=== PATIENT | male | born 1955 | race Caucasian/White ===

== ENCOUNTER 2019-05-31 00:16 | Day surgery (SDC) | payer OTHER, SELFPAY ==
[2019-05-24 14:14] VITALS: BMI 32.8
[2019-05-31 07:09] VITALS: BP 154/91; PULSE 89; RESP 18; O2SAT 97; BMI 31.9
--- NOTE | 2019-05-31 07:24 | WPDANESEPPF ---
Anes - Initial Pre Proc Eval Procedure: Operation Date: 05/31/19 08:00 Proposed Procedures p Screening Colonoscopy - Bandar Aguero MD Date/Time: 05/31/19 07:24 Surgeon: Bandar Aguero MD Pre Op Diagnosis: Neoplasm Screening/ Fam Hx Colon Ca Patient Data Age: 63 Gender: M Height: 1.88 m Weight: 113 kg Last Vital Signs Pulse 89 05/31/19 07:09 Resp 18 05/31/19 07:09 BP 154/91 H 05/31/19 07:09 Pulse Ox 97 05/31/19 07:09 Allergies Allergy/AdvReac Type Severity Reaction Status Date / Time No Known Allergies Allergy Unknown Verified 05/31/19 06:55 Home Medications Medication Instructions Recorded Confirmed Type iqphkzawvjgk-ujw-zmdco acid-vit 1 tablet PO DAILY 01/29/19 05/31/19 History K-lycop 400 mcg-20 mcg-370 mcg tablet quinapril 20 1 tablet PO DAILY 01/29/19 05/31/19 History mg-hydrochlorothiazide 12.5 mg tablet duloxetine [Cymbalta] 60 mg PO BID 05/24/19 05/31/19 History meloxicam 15 mg PO EVERY OTHER DAY 05/24/19 05/31/19 History Patient hx anesthesia problems: none Family hx anesthesia problems: none PMFSH Past Medical History Medical History (Updated 05/30/19 @ 13:33 by Jean-Pierre Cardenas DO) Hypertension Osteoarthritis Surgical History Surgical History History of back surgery Social History Social History Smoking status: Never smoker Second hand tobacco smoke exposure: No Alcohol intake: never Gender identity (if verbalized by the patient): Male Anes - Eval Final PreProcedure Day of Procedure 05/31/19 07:24 Patient weight: obese Heart: regular rate and rhythm Lungs: clear to auscultation and normal air movement Airway: Mallampati scale class II Neurological: alert and oriented Last oral intake: >/= 8 hours ASA classification: III Emergent: no Anesthetic plan: proceed Anesthesia type and monitoring: general GIVS and standard monitoring Informed Consent: The patient's anesthetic plan and its attendant risks and benefits were discussed with the patient/family/POA. Questions were solicited and answers provided to the satisfaction of the patient/family/POA.
[2019-05-31] MEDS: LACTATED RINGERS 1,000 ML 150 ML IV CONT (07:30)
--- NOTE | 2019-05-31 07:32 | WPDGICN ---
Assessment and Plan Additional Plan This is a 63-year-old white male patient seen in evaluation at the request of Dr. Bhardwaj. Patient presents for screening colonoscopy. His current weight appetite bowel movements are normal. He denies abdominal pain. Bowel habits are regular. He denies any blood in his stools. Family history is significant his father had colon cancer. His brother may have had colon polyps. Current medications include Cymbalta, meloxicam, and vitamins, he also takes hydrochlorothiazide. No known medical allergies. Physical exam reveals patient to be alert. Vital signs stable. HEENT exam unremarkable. Lungs are clear to auscultation and percussion. Heart is without murmur or extra sounds. Abdominal exam bowel sounds are present soft nontender with no organomegaly. Digital external rectal exam normal. Impression 1. Family history of colon cancer in father. Plan is for screening colonoscopy now and at 5 year intervals in the future. GI Consult Note Consult date/time: 05/31/19 07:32 HPI: Ry Barbour is a 63 year old male [facility] Past Medical History Medical History (Updated 05/30/19 @ 13:33 by Jean-Pierre Cardenas DO) Hypertension Osteoarthritis Surgical History Surgical History History of back surgery Social History Social History Smoking status: Never smoker Second hand tobacco smoke exposure: No Alcohol intake: never Gender identity (if verbalized by the patient): Male Meds Home Medications and Allergies Home Medications Medication Instructions Recorded Confirmed Type rdhgbcwaqpnr-hdo-pjrct acid-vit 1 tablet PO DAILY 01/29/19 05/31/19 History K-lycop 400 mcg-20 mcg-370 mcg tablet quinapril 20 1 tablet PO DAILY 01/29/19 05/31/19 History mg-hydrochlorothiazide 12.5 mg tablet duloxetine [Cymbalta] 60 mg PO BID 05/24/19 05/31/19 History meloxicam 15 mg PO EVERY OTHER DAY 05/24/19 05/31/19 History Allergies Allergy/AdvReac Type Severity Reaction Status Date / Time No Known Allergies Allergy Unknown Verified 05/31/19 06:55 Vital Signs Vital Signs - 24 hr 05/31/19 07:09 Pulse Rate 89 Respiratory Rate 18 Blood Pressure 154/91 H Pulse Oximetry 97
[2019-05-31 08:29] VITALS: BP 146/91; PULSE 85; RESP 19; O2SAT 99
[2019-05-31 08:39] VITALS: BP 136/93; PULSE 80; RESP 21; O2SAT 99
[2019-05-31 08:49] VITALS: BP 145/95; PULSE 72; RESP 18; O2SAT 99
== END 2019-05-31 08:56 | disposition home or self-care (01) ==
PROVIDERS: PCP Family Medicine; Visit Provider Internal Medicine Gastroenterology
PROC: 0DJD8ZZ Inspection of Lower Intestinal Tract, Via Natural or Artificial Opening Endoscopic (ICD-10-PCS; CPT 45378; principal; 2019-05-31 08:00)
DX: Z12.11 Encounter for screening for malignant neoplasm of colon (principal); K57.30 Diverticulosis of large intestine without perforation or abscess without bleeding; K64.8 Other hemorrhoids; Z80.0 Family history of malignant neoplasm of digestive organs; I10 Essential (primary) hypertension; M19.90 Unspecified osteoarthritis, unspecified site; E66.9 Obesity, unspecified; Z68.32 Body mass index [BMI] 32.0-32.9, adult
CPT/HCPCS: 45378; J2704; J7120

== ENCOUNTER 2019-08-27 08:02 | Outpatient (CLI) | payer OTHER, SELFPAY ==
[2019-08-27 08:55] LABS: Alanine Aminotransferase 29 U/L (16-63); Albumin Level 3.6 g/dL (3.4-5.0); Alkaline Phosphatase 92 U/L (46-116); Anion Gap 11.1 mmol/L (7-16); Aspartate Amino Transferase 21 U/L (15-37); Bilirubin,Total 0.6 mg/dL (0.00-1.00); Blood Urea Nitrogen 19 mg/dL (7-18); Calcium 8.4 mg/dL (8.5-10.1); Carbon Dioxide 31 mmol/L (21-32); Chloride 104 mmol/L (98-108); Estimated Glomerular Filt Rate > 60; Glucose 96 mg/dL (70-99); Osmolality Calculated 296 mOsm/kg (285-295); Potassium 4.1 mmol/L (3.5-5.1); Sodium 142 mmol/L (136-145); Total Protein 6.7 g/dL (6.4-8.2)
[2019-08-27 09:10] LABS: CRP < 0.2 mg/dL (0.0-0.9)
[2019-08-27 09:13] LABS: Erythrocyte Sedimentation Rate 14 mm/hr (0-20)
== END 2019-08-27 08:03 | disposition home or self-care (01) ==
PROVIDERS: PCP Family Medicine; Visit Provider Internal Medicine
DX: M35.3 Polymyalgia rheumatica (principal); M19.90 Unspecified osteoarthritis, unspecified site
CPT/HCPCS: 36415; 80053; 85652; 86140

== ENCOUNTER 2020-04-04 08:52 | Outpatient (CLI) | payer OTHER, SELFPAY ==
[2020-04-04 09:50] LABS: Alanine Aminotransferase 26 U/L (16-63); Albumin Level 3.9 g/dL (3.4-5.0); Alkaline Phosphatase 86 U/L (46-116); Anion Gap 8 mmol/L (8-16); Aspartate Amino Transferase 12 U/L (15-37); Bilirubin,Total 0.8 mg/dL (0.00-1.00); Blood Urea Nitrogen 19 mg/dL (7-18); Calcium 8.7 mg/dL (8.5-10.1); Carbon Dioxide 29 mmol/L (21-32); Chloride 104 mmol/L (98-108); Estimated Glomerular Filt Rate > 60; Glucose 95 mg/dL (70-99); Osmolality Calculated 294 mOsm/kg (285-295); Potassium 4.3 mmol/L (3.5-5.1); Sodium 141 mmol/L (136-145); Total Protein 6.9 g/dL (6.4-8.2)
== END 2020-04-04 08:53 | disposition home or self-care (01) ==
LOC: CHSLAB 08:54
PROVIDERS: PCP Family Medicine; Visit Provider Internal Medicine
DX: M19.90 Unspecified osteoarthritis, unspecified site (principal)
CPT/HCPCS: 36415; 80053

== ENCOUNTER 2020-09-06 14:49 | Emergency (ER) | payer OTHER, SELFPAY ==
--- NOTE | ~2020-09-06 | CT_ITS ---
EXAMINATION: CT abdomen pelvis wo con DATE: 09/06/2020 15:46 INDICATION: Hematuria and dysuria presenting with bladder pressure and burning sensation. TECHNIQUE: Computed tomography (CT) of the abdomen and pelvis was performed without intravenous contr ast. Automated exposure control and iterative reconstruction technique were employed. The dose-length product was 1286.97 mGy-cm. COMPARISON: None FINDINGS: Lung bases are clear. Heart size is normal. No pericardial or pleural effusion. Liver, gallbladder, s pleen, pancreas and bilateral adrenal glands are normal. 1.7 cm cyst at the interpolar region of the right kidney. Indeterminate 2.2 cm intermediate attenuation exophytic lesion at the interpolar region of the left kidney. 2 mm stone in the distal right ureter approximately 1.5 cm from the ureterovesic ular junction with mild right hydroureteronephrosis. No other urolithiasis. There are a few small par apelvic cysts in the left kidney with no left-sided hydronephrosis. There is moderate colonic diverti culosis with a sigmoid predominance. There is no adjacent inflammatory change to suggest diverticuli tis. Small bowel and appendix are normal. Small fat-containing umbilical hernia. Bladder is normal. P rostatomegaly. Small bilateral fat-containing inguinal hernias. No free intraperitoneal gas or fluid. No pathologically enlarged abdominal or pelvic lymphadenopathy. Moderate lumbar and lower thoracic s pondylosis with multiple small Schmorl's nodes. IMPRESSION: 1. 2 mm distal right ureteral stone with mild right hydroureteronephrosis. 2. Indeterminate 2.2 cm exophytic left renal lesion statistically most likely to represent a proteina ceous/hemorrhagic cyst although renal cell carcinoma could not be excluded. Recommend further evaluat ion with follow-up pre and postcontrast MRI. 3. Prostatomegaly. 4. Small bilateral fat-containing inguinal hernias. Reviewed, dictated and finalized at location A. IMPRESSION: 1. 2 mm distal right ureteral stone with mild right hydroureteronephrosis. 2. Indeterminate 2.2 cm exophytic left renal lesion statistically most likely t o represent a proteinaceous/hemorrhagic cyst although renal cell carcinoma coul d not be excluded. Recommend further evaluation with follow-up pre and postcont rast MRI. 3. Prostatomegaly. 4. Small bilateral fat-containing inguinal hernias.
[2020-09-06 14:55] VITALS: BP 162/91; PULSE 82; RESP 17; TEMP 36.8; O2SAT 98
--- NOTE | 2020-09-06 14:59 | ED.MALEGU ---
HPI - Male Genitourinary General Chief complaint: Urogenital-Male Stated complaint: possible UTI Time Seen by Provider: 09/06/20 15:00 Source: patient and family Mode of arrival: ambulatory Limitations: no limitations History of Present Illness HPI Narrative: 64-year-old man comes in today complaining of urgency, and dysuria started this morning. Patient states that also has some low abdominal pain. Denies any fever, chills, night sweats, chest pain, difficulty breathing, nausea, vomiting or prior similar symptoms. He has had no blood in his urine. MD Complaint: dysuria Onset (ago): hour(s) (Today) Duration: constant Location: abdomen Severity: moderate Quality: burning Relieving factors: none Exacerbating factors: urination Associated symptoms: Reports denies other symptoms Related Data Home Medications Medication Instructions Recorded Confirmed aizhzojuyqiu-qcg-xcgdf acid-vit 1 tablet PO DAILY 01/29/19 09/06/20 K-lycop 400 mcg-20 mcg-370 mcg tablet ofloxacin 0.3 % eye drops 2 drp OPHTHALMIC (EYE) QID 04/11/20 09/06/20 prednisolone acetate 1 % eye 2 drp OPHTHALMIC (EYE) Q12H 04/11/20 09/06/20 drops,suspension emollient combination no.32 1 applic TOPICAL BID 09/06/20 09/06/20 [EpiCeram] quinapril-hydrochlorothiazide 1 tablet PO DAILY 09/06/20 09/06/20 Allergies Allergy/AdvReac Type Severity Reaction Status Date / Time No Known Allergies Allergy Unknown Verified 04/11/20 09:17 Review of Systems Review of Systems: All systems reviewed & are unremarkable except as noted in HPI and below Constitutional: Constitutional: Denies chills and Denies fever(s) Eyes: Eyes: Denies change in vision and Denies photophobia ENT: Denies dysphagia, Denies nasal congestion and Denies sore throat Cardiovascular: Cardiovascular: Denies chest pain and Denies radiating jaw, neck or arm pain Respiratory: Respiratory: Denies cough and Denies dyspnea Gastrointestinal: Gastrointestinal: Reports abdominal pain, Denies nausea and Denies vomiting Genitourinary: Genitourinary: Denies hematuria, Reports dysuria, Denies penile discharge and Denies testicular pain Musculoskeletal: Musculoskeletal: Reports arthralgias (history of OA) and Denies joint swelling Integumentary/Breasts: Skin/Breast: Denies pruritus, Denies erythema and Denies rash Neurologic: Denies vertigo, Denies dizziness and Denies syncope Endocrine: Endocrine: Denies polydipsia and Denies polyuria Hematologic/Lymphatic: Hematologic/Lymphatic: Denies easy bleeding and Denies easy bruising Allergic/Immunologic: Allergic/Immunologic: Denies lip swelling and Denies tongue swelling PMFSH Past Medical History Medical History Dyslipidemia Essential (primary) hypertension Hearing loss Hip pain, bilateral (~2018) Hypertension Osteoarthritis Polymyalgia rheumatica Rosacea Surgical History Surgical History History of back surgery History of eye surgery (~03/2019) History of right knee surgery (~10/19/18) Hx of lumbosacral spine surgery (~1994) Family History Family History Other Carcinoma of colon Family history of coronary artery disease Hypertension Malignant neoplasm of prostate Social History Social History Smoking status: Never smoker Second hand tobacco smoke exposure: No Alcohol intake: never Substance use: never Substance use type: does not use Gender identity (if verbalized by the patient): Male Exam Const: General: no acute distress and alert Nutritional Appearance: well nourished Orientation/consciousness: patient oriented x3 Limitations: altered mental status HENMT: Head: normal to inspection Ears: TM's normal bilaterally and EAC's normal General nose exam: Nasal discharge present Face and
[2020-09-06 15:20] LABS: Add Urine Microscopic? YES; Appearance Urine Clear (Clear); Bilirubin Urine Negative (Negative); Blood Urine 2+ (Negative); Color Urine Yellow (Yellow); Glucose Urine UA Negative (Negative); Ketones Urine Trace (Negative); Leukocyte Esterase Ur Negative (Negative); Nitrate Urine Negative (Negative); Protein Urine Negative (Negative); Specific Grav Ur 1.025 (1.010-1.020); Urobilinogen Urine 0.2 mg/dL (0.2-1.0); pH Urine 5.5 (5.0-8.0)
[2020-09-06 15:21] LABS: Bacteria Urine Trace /hpf; Squamous Epithelial Cell Urine Rare /hpf (Few); WBC Urine 0-3 /hpf (0-3)
[2020-09-06 16:10] LABS: Basophils Absolute Auto 0.04 K/mm3 (0.00-0.10); Basophils Percent Auto 0.4 % (0.0-1.0); Eosinophils Absolute Auto 0.17 K/mm3 (0.02-0.50); Eosinophils Percent Auto 1.7 % (1.0-6.0); Hematocrit 41.3 % (40.0-54.0); Hemoglobin 14.2 g/dL (14.0-18.0); Immature Granulocyte Absolute 0.04 K/mm3 (0.00-0.00); Immature Granulocyte Percent A 0.4 % (0.0-0.0); Lymphocytes Absolute Auto 1.43 K/mm3 (1.10-4.50); Lymphocytes Percent Auto 14.3 % (18.0-42.0); Mean Corpuscular HGB Conc 34.4 g/dL (32.0-36.0); Mean Corpuscular Hemoglobin 33.4 pg (27.0-31.0); Mean Corpuscular Volume 97.2 fL (78.0-102.0); Mean Platelet Volume 10.2 fl (8.7-11.0); Monocytes Absolute Auto 0.89 K/mm3 (0.10-0.90); Monocytes Percent Auto 8.9 % (2.0-11.0); Neutrophils Absolute Auto 7.5 K/mm3 (1.7-7.2); Neutrophils Percent Auto 74.3 % (50.0-70.0); Platelet Count Result 186 K/mm3 (150-420); Red Blood Count 4.25 M/mm3 (4.70-6.10); Red Cell Distribution Width 12.3 % (11.6-14.4)
[2020-09-06 16:18] LABS: Alanine Aminotransferase 29 U/L (16-63); Albumin Level 3.6 g/dL (3.4-5.0); Alkaline Phosphatase 95 U/L (46-116); Anion Gap 9 mmol/L (8-16); Aspartate Amino Transferase 17 U/L (15-37); Bilirubin,Total 0.6 mg/dL (0.00-1.00); Blood Urea Nitrogen 24 mg/dL (7-18); Calcium 8.4 mg/dL (8.5-10.1); Carbon Dioxide 26 mmol/L (21-32); Chloride 105 mmol/L (98-108); Estimated Glomerular Filt Rate 58; Glucose 94 mg/dL (70-99); Osmolality Calculated 294 mOsm/kg (285-295); Potassium 3.8 mmol/L (3.5-5.1); Sodium 140 mmol/L (136-145); Total Protein 6.5 g/dL (6.4-8.2)
[2020-09-06 16:40] VITALS: RESP 16
== END 2020-09-06 16:45 | disposition home or self-care (01) ==
PROVIDERS: Emergency Provider Emergency Medicine; PCP Family Medicine
DX: N13.2 Hydronephrosis with renal and ureteral calculous obstruction (principal); N13.1 Hydronephrosis with ureteral stricture, not elsewhere classified
CPT/HCPCS: 36415; 74176; 80053; 81001; 85025; 87086; 99283; 99284

== ENCOUNTER 2020-10-01 17:47 | Outpatient (CLI) | payer OTHER, SELFPAY ==
[2020-10-01 19:17] LABS: Alanine Aminotransferase 33 U/L (16-63); Albumin Level 4.2 g/dL (3.4-5.0); Alkaline Phosphatase 87 U/L (46-116); Anion Gap 13 mmol/L (8-16); Aspartate Amino Transferase 17 U/L (15-37); Blood Urea Nitrogen 20 mg/dL (7-18); Calcium 8.9 mg/dL (8.5-10.1); Carbon Dioxide 28 mmol/L (21-32); Chloride 106 mmol/L (98-108); Estimated Glomerular Filt Rate > 60; Glucose 78 mg/dL (70-99); Osmolality Calculated 305 mOsm/kg (285-295); Potassium 4.3 mmol/L (3.5-5.1); Sodium 147 mmol/L (136-145)
== END 2020-10-01 17:48 | disposition home or self-care (01) ==
LOC: CHSLAB 17:50
PROVIDERS: PCP Family Medicine; Visit Provider Internal Medicine
DX: M25.551 Pain in right hip (principal); M25.552 Pain in left hip; M19.90 Unspecified osteoarthritis, unspecified site; M35.3 Polymyalgia rheumatica
CPT/HCPCS: 36415; 80053

== ENCOUNTER 2021-02-06 07:47 | Outpatient (CLI) | payer OTHER, SELFPAY ==
[2021-02-06 08:41] LABS: CRP < 0.2 mg/dL (0.0-0.9)
[2021-02-06 09:07] LABS: Erythrocyte Sedimentation Rate 20 mm/hr (0-20)
== END 2021-02-06 07:48 | disposition home or self-care (01) ==
LOC: CHSLAB 07:49
PROVIDERS: PCP Family Medicine; Visit Provider Internal Medicine
DX: M35.3 Polymyalgia rheumatica (principal)
CPT/HCPCS: 36415; 85652; 86140

== ENCOUNTER 2021-09-07 07:57 | Outpatient (CLI) | payer OTHER, SELFPAY ==
[2021-09-07 08:31] LABS: Alanine Aminotransferase 33 U/L (16-63); Albumin Level 3.6 g/dL (3.4-5.0); Alkaline Phosphatase 91 U/L (46-116); Anion Gap 5 mmol/L (8-16); Aspartate Amino Transferase 20 U/L (15-37); Bilirubin,Total 0.5 mg/dL (0.00-1.00); Blood Urea Nitrogen 26 mg/dL (7-18); Calcium 8.7 mg/dL (8.5-10.1); Carbon Dioxide 28 mmol/L (21-32); Chloride 107 mmol/L (98-108); Estimated Glomerular Filt Rate > 60; Glucose 110 mg/dL (70-99); Osmolality Calculated 295 mOsm/kg (285-295); Potassium 4.3 mmol/L (3.5-5.1); Sodium 140 mmol/L (136-145); Total Protein 7.1 g/dL (6.4-8.2)
== END 2021-09-07 07:58 | disposition home or self-care (01) ==
LOC: CHSLAB 08:00
PROVIDERS: PCP Family Medicine; Visit Provider Internal Medicine
DX: M06.9 Rheumatoid arthritis, unspecified (principal)
CPT/HCPCS: 36415; 80053

== ENCOUNTER 2021-10-13 11:30 | Outpatient (CLI) | payer MEDICARE, SELFPAY ==
[2021-10-13 18:43] LABS: Basophils Absolute Auto 0.1 K/mm3 (0.0-0.1); Basophils Percent Auto 0.9 % (0.2-1.2); Eosinophils Absolute Auto 0.2 K/mm3 (0-0.3); Hematocrit 42.6 % (42.0-52.0); Hemoglobin 14.7 g/dL (14.0-18.0); Immature Granulocyte Absolute 0.03 K/mm3 (0.00-0.031); Immature Granulocyte Percent A 0.4 % (0-0.5); Lymphocytes Absolute Auto 1.83 K/mm3 (0.9-3.2); Lymphocytes Percent Auto 23.1 % (18.3-44.2); Mean Corpuscular HGB Conc 34.5 g/dl (32-36); Mean Corpuscular Hemoglobin 33.4 pg (26-34); Mean Corpuscular Volume 96.8 fl (80-100); Mean Platelet Volume 10.2 fl (7.4-10.4); Monocytes Absolute Auto 0.7 K/mm3 (0.1-0.6); Monocytes Percent Auto 9.3 % (2.6-8.5); Neutrophils Percent Auto 63.3 % (45.5-73.1); Platelet Count Result 212 k/mm3 (150-375); Red Cell Distribution Width 12.2 % (11.5-14.5); White Blood Count 7.9 K/mm3 (4.5-10.0)
[2021-10-13 18:45] LABS: Cholesterol 187 mg/dL (0-200); HDL Direct 38 mg/dL; Triglycerides 165 mg/dL (<150)
[2021-10-13 18:56] LABS: LDL Cholesterol Direct 100 mg/dL
[2021-10-13 19:14] LABS: Prostate Specific Antigen 0.5 ng/mL (< OR = 4.0)
[2021-10-13 20:17] LABS: Vitamin D 25 Hydroxy 43.7 ng/mL
[2021-10-13 21:29] LABS: Hemoglobin A1C 5.4 % (<5.7)
== END 2021-10-13 11:31 | disposition home or self-care (01) ==
LOC: ANHGOSHLAB 11:35
PROVIDERS: PCP Family Medicine; Visit Provider Family Medicine
DX: E78.5 Hyperlipidemia, unspecified (principal); Z12.5 Encounter for screening for malignant neoplasm of prostate; R73.9 Hyperglycemia, unspecified; I10 Essential (primary) hypertension; E55.9 Vitamin D deficiency, unspecified; L71.9 Rosacea, unspecified
CPT/HCPCS: 36415; 80061; 82306; 83036; 84153; 84154; 84443; 85025; G0103

== ENCOUNTER 2021-12-20 14:55 | Emergency (ER) | payer MEDICARE, SELFPAY ==
--- NOTE | ~2021-12-20 | CT_ITS ---
EXAMINATION: CT chest abdomen pelvis wo con DATE: 12/20/2021 16:01 INDICATION: Chest pain, shortness of breath. Abdominal distention, nausea, weakness. Back surgery on 12/15/2021. TECHNIQUE: Computed tomography (CT) of the chest, abdomen, and pelvis was performed without intraveno us contrast. Automated exposure control and iterative reconstruction technique were employed. Exam do se: 1900.76 mGy-cm total exam DLP. COMPARISON: 09/06/2020 CT abdomen pelvis FINDINGS: CHEST CT: Mild bilateral gynecomastia. Normal heart size. No pericardial or pleural effusion. No thoracic aortic aneurysm. No hilar or mediastinal mass lesion or lymphadenopathy. No pulmonary infiltrate or consolidation or pulmonary mass lesion. ABDOMEN/PELVIS CT: The liver, gallbladder, bile ducts, pancreas, pancreatic duct, spleen and adrenal glands are normal i n appearance. Small bilateral parapelvic renal cysts. Bilateral perinephric stranding. No urinary tract calculus or hydroureteronephrosis. Normal caliber of the abdominal aorta. No intraperitoneal or retroperitoneal or pelvic mass lesion or adenopathy or ascites. Small bilateral fat-containing inguinal hernias. Mild diverticulosis of left and right colon; no CT evidence of diverticulitis. Normal appendix. No charo wel obstruction, bowel wall thickening, pneumatosis or intraperitoneal free air. Mild prostate enlargement and calcification. The urinary bladder is unremarkable. Small fat-containing umbilical hernia. Prominent degenerative disc disease in the lower cervical spine. Diffuse idiopathic skeletal hyperostosis of the thoracic spine. Postoperative change from left L4-S1 surgical fusion with pedicle screws and gertrudis, including some soft tissue infiltration of the subcutaneous adipose tissue in the posterior lower back in the operative area. IMPRESSION: Recent unilateral left posterior surgical fusion at L4-S1 Degenerative changes of the cervical and thoracic spine No bowel obstruction or intraperitoneal free air Diverticulosis of the colon; no evidence of diverticulitis Normal appendix Reviewed, dictated and finalized at [facility]. Reviewed, dictated and finalized at location [facility].
--- NOTE | ~2021-12-20 | CT_ITS ---
EXAMINATION: CT brain wo con DATE: 12/20/2021 16:00 INDICATION: Altered mental state. TECHNIQUE: Computed tomography (CT) of the head was performed without intravenous contrast. The mA wa s adjusted according to patient size. Iterative reconstruction technique was employed. Exam dose: 60 5.33 mGy-cm total exam DLP. COMPARISON: 10/12/2017 CT brain FINDINGS: No intracranial mass lesion or hemorrhage, midline shift or mass effect. No evidence of cer ebrovascular accident. Normal ventricular size. No subdural or epidural hematoma. No orbital mass lesion. The mastoid air cells and included paranasal sinuses are normally developed and aerated. No fracture or bone destruction of the cranial vault. IMPRESSION: No significant abnormality Reviewed, dictated and finalized at [facility]. Reviewed, dictated and finalized at location [facility]. IMPRESSION: No significant abnormality
[2021-12-20 14:55] VITALS: BP 130/60; PULSE 93; RESP 24; TEMP 36.4; O2SAT 100
[2021-12-20] MEDS: SODIUM CHLORIDE 0.9% IV 500 ML 999 ML IV CONT (14:55)
--- NOTE | 2021-12-20 15:10 | ECG_ITS ---
Measurements Intervals [place] Rate: 90 P: 28 FL: 159 QRS: 14 QRSD: 90 T: 49 QT: 345 QTc: 424 Interpretive Statements SINUS RHYTHM BASELINE ARTIFACT- I, II, III, AVF, V1 NORMAL ECG NO PREVIOUS ECG AVAILABLE FOR COMPARISON Electronically Signed On 12-20-2021 18:58:52 CDT by Santi Rosenbaum D.O.
[2021-12-20 15:15] VITALS: O2SAT 98
[2021-12-20] MEDS: PANTOPRAZOLE SODIUM IV 40 MG VIAL IV PUSH (15:27)
[2021-12-20 15:39] LABS: Base Excess ABG -1.4 mmol/L (0-2); Basophils Absolute Auto 0.06 K/mm3 (0.00-0.10); Basophils Percent Auto 0.6 % (0.0-1.0); Eosinophils Percent Auto 4.1 % (1.0-6.0); HCO3 ABG 20.8 mmol/L (23-29); Hematocrit 37.3 % (37.0-46.0); Hemoglobin 12.8 g/dL (12.4-15.3); Immature Granulocyte Absolute 0.23 K/mm3 (0.00-0.00); Immature Granulocyte Percent A 2.4 % (0.0-0.0); Lymphocytes Absolute Auto 1.18 K/mm3 (1.10-4.50); Lymphocytes Percent Auto 12.1 % (18.0-42.0); Mean Corpuscular HGB Conc 34.3 g/dL (32.0-36.0); Mean Corpuscular Hemoglobin 34.1 pg (27.0-31.0); Mean Corpuscular Volume 99.5 fL (78.0-102.0); Mean Platelet Volume 9.7 fl (8.7-11.0); Monocytes Absolute Auto 0.81 K/mm3 (0.10-0.90); Monocytes Percent Auto 8.3 % (2.0-11.0); Neutrophils Absolute Auto 7.1 K/mm3 (1.7-7.2); Neutrophils Percent Auto 72.5 % (50.0-70.0); Oxygen Content ABG 18.2 %vol (16.0-22.0); Oxygen Saturation ABG 96.7 % (95-97); Oxyhemoglobin 96.2 % (94-100); PCO2 ABG 28.3 mmHg (35-45); PO2 ABG 90.4 mmHg (80-90); Platelet Count Result 227 K/mm3 (150-420); Red Blood Count 3.75 M/mm3 (4.70-6.10); Red Cell Distribution Width 12.2 % (11.6-14.4); Total Hemoglobin 13.4 g/dL (12.0-18.0); White Blood Count 9.8 K/mm3 (4.8-10.8); pH ABG 7.48 (7.35-7.45)
[2021-12-20 15:41] LABS: Device NASAL CANNULA; Modified Allen's Test Pass; Site Drawn RIGHT RADIAL
[2021-12-20 15:48] LABS: Add Urine Microscopic? NO; Appearance Urine Clear (Clear); Bilirubin Urine Negative (Negative); Blood Urine Negative (Negative); Color Urine Yellow (Yellow); Glucose Urine UA Negative (Negative); Ketones Urine Negative (Negative); Leukocyte Esterase Ur Negative (Negative); Nitrate Urine Negative (Negative); Protein Urine Negative (Negative); Specific Grav Ur 1.025 (1.010-1.020); Urobilinogen Urine 0.2 mg/dL (0.2-1.0)
[2021-12-20 15:58] LABS: Alanine Aminotransferase 41 U/L (16-63); Alkaline Phosphatase 83 U/L (46-116); Anion Gap 8 mmol/L (8-16); Aspartate Amino Transferase 32 U/L (15-37); Bilirubin,Total 0.7 mg/dL (0.00-1.00); Blood Urea Nitrogen 29 mg/dL (7-18); Calcium 8.5 mg/dL (8.5-10.1); Carbon Dioxide 25 mmol/L (21-32); Chloride 101 mmol/L (98-108); Estimated Glomerular Filt Rate 51; Glucose 114 mg/dL (70-99); Osmolality Calculated 284 mOsm/kg (285-295); Potassium 4.3 mmol/L (3.5-5.1); Sodium 134 mmol/L (136-145); Total Protein 6.7 g/dL (6.4-8.2); Troponin I 5.5 ng/L (0.00-60.4)
[2021-12-20 15:59] LABS: Lactic Acid Reflex 1.8 mmol/L (0.4-2.0)
[2021-12-20 16:00] VITALS: O2SAT 95
--- NOTE | 2021-12-20 16:00 | ED.WEAKNESS ---
HPI - Weakness General Chief complaint: Weakness Stated complaint: weakness, SOB Time Seen by Provider: 12/20/21 14:57 Source: patient, family, EMS and RN notes reviewed Mode of arrival: EMS Limitations: no limitations History of Present Illness MD Complaint: generalized weakness and lack of energy Onset (ago): hour(s) (6) Duration: progressively worsening Location: generalized Migration: none Severity: moderate Severity scale (1-10): 2 Quality: other (patient had minimal pain) Relieving factors: medication Exacerbating factors: movement Context: recent surgery Associated symptoms: diaphoresis and nausea/vomiting Related Data Home Medications Medication Instructions Recorded Confirmed qajrutsmdouz-rci-fmnxz acid-vit 1 tablet PO DAILY 01/29/19 10/13/21 K-lycop 400 mcg-20 mcg-370 mcg tablet (One-A-Day Men's 50 Plus) cetirizine 10 mg tablet (Zyrtec) 10 mg PO DAILY PRN 02/13/21 10/13/21 cyclobenzaprine 10 mg tablet 10 mg PO TID 12/20/21 12/20/21 docusate sodium 100 mg capsule 100 mg PO DAILY 12/20/21 12/20/21 duloxetine 60 mg capsule,delayed 30 mg PO BID 12/20/21 12/20/21 release (Cymbalta) oxycodone 10 mg tablet 10 mg PO PRN PRN Painful Procedure 12/20/21 12/20/21 Allergies Allergy/AdvReac Type Severity Reaction Status Date / Time No Known Allergies Allergy Unknown Verified 10/13/21 09:52 Review of Systems Review of Systems: All systems reviewed & are unremarkable except as noted in HPI and below Constitutional: Constitutional: Reports no additional constitutional complaints Eyes: Eyes: Reports no additional eye complaints ENT: Reports system reviewed and no additional complaints, except as documented Cardiovascular: Cardiovascular: Reports no additional cardiovascular complaints Respiratory: Respiratory: Reports no additional respiratory complaints and Reports dyspnea Gastrointestinal: Gastrointestinal: Reports no additional gastrointestinal complaints Musculoskeletal: Musculoskeletal: Reports no additional musculoskeletal complaints Integumentary/Breasts: Skin/Breast: Reports system reviewed and no additional complaints, except as docu Neurologic: Reports system reviewed and no additional complaints, except as documented and Reports weakness Psychiatric: Psychiatric: Reports no additional psychiatric complaints Endocrine: Endocrine: Reports no additional endocrine complaints Hematologic/Lymphatic: Hematologic/Lymphatic: Reports no additional hematologic/lymphatic complaints Allergic/Immunologic: Allergic/Immunologic: Reports no additional allergic/immunologic complaints PMFSH Past Medical History Medical History Dyslipidemia Essential (primary) hypertension Hearing loss Hip pain, bilateral (~2018) History of renal stone Osteoarthritis Polymyalgia rheumatica Vitamin D deficiency Surgical History Surgical History History of back surgery History of eye surgery (~03/2019) History of right knee surgery (~10/19/18) Status post ablation of incompetent vein using laser (~12/2020) Right greater saphenous vein Family History Family History Other Carcinoma of colon Family history of coronary artery disease Hypertension Malignant neoplasm of prostate Social History Social History Smoking status: Never smoker Second hand tobacco smoke exposure: No Alcohol intake: never Substance use: never Substance use type: does not use Gender identity (if verbalized by the patient): Male Exam Const: General: no acute distress Nutritional Appearance: well nourished Orientation/consciousness: patient oriented x3 Limitations: no limitations HENMT: Head: normal to inspection Ears: external ears normal, TM's normal bilaterally and EAC's normal General nose exa
[2021-12-20 16:22] VITALS: BP 112/73; PULSE 91; RESP 20; O2SAT 94
--- NOTE | 2021-12-20 16:33 | PC.NURSE ---
1530 pt surgical site dressing to lower back, clean and intact. changes daily.
[2021-12-20 17:06] VITALS: BP 107/75; PULSE 91; RESP 18; TEMP 36.6; O2SAT 94
== END 2021-12-20 17:15 | disposition home or self-care (01) ==
PROVIDERS: Emergency Provider Emergency Medicine; PCP Family Medicine
DX: R53.1 Weakness (principal); I10 Essential (primary) hypertension; E55.9 Vitamin D deficiency, unspecified; M35.3 Polymyalgia rheumatica
CPT/HCPCS: 36415; 36600; 70450; 71250; 74176; 80053; 81003; 82805; 83605; 84484; 85025; 93005; 96361; 96374; 99284; C9113; J7040

== ENCOUNTER 2021-12-28 16:39 | Outpatient (RCR) | payer MEDICARE, SELFPAY ==
--- NOTE | 2021-12-28 18:08 | PTOPEVAL1 ---
Assessment and note entered by Marge Saxena, PT Evaluation Information Assessment Status Evaluation Diagnosis Low Back Pain s/p L3-5 fusion, Cervical Pain Onset 12/15/21, 12/26/21 Subjective Information Ry Barbour reports he had back surgery on 12/15 for L3-L5 stabilization. He reports he has had chronic low back pain intermittently for the last several years. He reports his back is progressing since surgery. He was having pain radiating to the right leg and occasionally the left prior to surgery. Since surgery, he has been having less pain in the right leg but notes mild numbness and weakness in the left leg. He has been using a walker since surgery. He notes difficulty standing more than 30 minutes and walking. He also reports an onset of neck pain on 12/26/21. He reports tightness developed throughout the day while watching television. He states pain worsened overnight and when he woke on 12/27/21 he could hardly move his head. He also notes increased pain when riding in the car. Reported Pain Level Pain Score 10,7: Self Report Assessment PT Clinical Summary Ry Barbour presents with low back pain following a lumbar surgery on 12/15/21 as well as acute cervical pain with an insidious onset. He has difficulty with moving his spine, prolonged standing, and walking. He objectively demonstrates severely restricted and painful cervical AROM, decreased lumbar AROM, decreased distal left LE strength, decreased core strength, impaired gait, and altered posture. He will benefit from skilled PT to address these limitations. Plan of Care Interventions Electrical Stimulation,Hot Pack/Cold Pack,Manual Therapy,Neuro Re-education,Patient/Caregiver Educati,Therapeutic Activities,Therapeutic Exercise PT Services Indicated Yes Treatment Frequency and 2 times a week for 16 visits Duration These treatments will address the objective and functional deficits as defined above. The patient will be advanced safely and appropriately in order for the patient to progress towards his/her prior level of function. Additional exercises will be introduced and as well as a comprehensive home exercise program upon discharge, if needed, ?to ensure carryover of functional gains achieved in the clinic. This treatment plan has been reviewed and agreement upon by the patient.
--- NOTE | 2022-02-04 11:46 | PTOPPROG ---
Assessment and note entered by Marge Saxena, PT Evaluation Information Assessment Status Progress Diagnosis Low Back Pain s/p L3-5 Fusion, Cervical Pain Onset 12/15/21, 12/26/21 Subjective Information Ry Barbour reports his lower back and buttock pain is increased today after trying to do a little around the house yesterday. He notes he still has difficulty with prolonged standing, walking longer distances, and with getting into and out of bed. He is noting less pain in his legs with stretching. He does still report nerve pain in both legs though. Regarding his neck, he is noting no pain today and reports it is still stiff but has improved. He notes improved range of motion as well. Assessment PT Clinical Summary Ry Barbour has completed 10 skilled PT visits following L3-5 fusion performed on 12/15/21 and for cervical pain. He is reporting improved cervical pain and mobility as well as slightly improved low back and LE symptoms since initiating PT. He continues to have limitations with standing, walking, and transfers due to his low back. He also continues to report nerve pain in both lower extremities. He objectively demonstrates improved cervical and lumbar AROM, improved L ankle and great toe extension strength, and less tenderness. He continues to demonstrate impaired gait, decreased endurance, decreased lumbar and cervical AROM, and decreased functional abilities including walking longer distances, transfer ability, and lifting ability leading to decreased ADL function. He will continue to benefit from skilled PT to further address these limitations. Plan of Care Interventions Electrical Stimulation,Hot Pack/Cold Pack,Manual Therapy,Neuro Re-education,Patient/Caregiver Educati,Therapeutic Exercise,Ultrasound PT Services Indicated Yes Treatment Frequency and Continue 3 times a week for 6 more visits Duration These treatments will address the objective and functional deficits as defined above. The patient will be advanced safely and appropriately in order for the patient to progress towards his/her prior level of function. Additional exercises will be introduced and as well as a comprehensive home exercise program upon discharge, if needed, ?to ensure carryover of functional gains achieved in the clinic. This treatment plan has been reviewed and agreement upon by the patient.
--- NOTE | 2022-02-26 17:03 | BUPTOPEVAL1 ---
Assessment and note entered by JT File, PT Evaluation Information Assessment Status Re-evaluation Diagnosis Low Back Pain s/p L3-5 Fusion, Cervical Pain Onset 12/15/21, 12/26/21 Subjective Information patient reports he is in severe pain today, and his pain is constant. he reports he feels the pain is not letting up. he reports he is having an injection sometime to his lower back to assess for possible further nerve entrapment/claudication. Reported Pain Level Pain Score 8,0: Self Report Assessment PT Clinical Summary mr. dailey presents to skilled PT with continued pain in the lower back, radicular symptoms in the LE's, weakness, and abnormal gait mechanics. he continues to be unable to tolerate sitting or standing for more than a few minutes, ambulation with a rollator walker, is unable to stand up fully erect, and displays poor balance/functional mobility. he would do well to continue skilled PT with focus on progress on ambulation, balance, posture, core and LE strength, and functional mobility to achieve his objective/functional goals and return to his prior level functional activity performance/quality of life. he is displaying limited/slow progress thus far, but continues to have pain in the lower back and down the legs. although his progress is slow, he is expecting an injection to the lower back soon. therapy is advised to continue to work with this injection to try and improve his functional performance and achieve his remaining goals. Plan of Care Interventions Electrical Stimulation,Hot Pack/Cold Pack,Manual Therapy,Neuro Re-education,Patient/Caregiver Educati,Therapeutic Exercise,Ultrasound PT Services Indicated Yes Treatment Frequency and continue skilled PT 2x weekly for 6 visits Duration These treatments will address the objective and functional deficits as defined above. The patient will be advanced safely and appropriately in order for the patient to progress towards his/her prior level of function. Additional exercises will be introduced and as well as a comprehensive home exercise program upon discharge, if needed, ?to ensure carryover of functional gains achieved in the clinic. This treatment plan has been reviewed and agreement upon by the patient.
== END 2022-03-16 19:00 | disposition home or self-care (01) ==
LOC: CHSPT 16:39
DX: M54.12 Radiculopathy, cervical region (principal); M54.16 Radiculopathy, lumbar region
CPT/HCPCS: 97014; 97035; 97110; 97140; 97161; G0283

== ENCOUNTER 2022-01-19 12:50 | Outpatient (CLI) | payer MEDICARE, SELFPAY ==
--- NOTE | ~2022-01-19 | CT_ITS ---
EXAMINATION: CT lumbar spine wo con DATE: 01/19/2022 13:10 INDICATION: Low back pain. Encounter for surgical aftercare following surgery on the nervous system. TECHNIQUE: Computed tomography (CT) of the lumbar spine was performed without intravenous contrast. A utomated exposure control and iterative reconstruction technique were employed. The dose-length produ ct was 1426.60 mGy-cm. COMPARISON: Lumbar spine MRI 11/18/2018 FINDINGS: Bone alignment is normal. There are Schmorl's nodes of at L1-L2 and L2-L3. There are change s of anterior fusion procedures at L4-L5 and L5-S1 with interbody devices. There are changes of poste rior fusion procedure from L4 to S1 with left-sided pedicle screws. There is mildly decreased disc he ight at L1-L2 and L2-L3. Osseous central spinal canal is developmentally small in lumbar spine. The f ollowing disc levels are specifically discussed: L1-L2: The disc is bulging. There is mild bilateral facet joint osteoarthritis. There is mild bilater al neural foraminal stenosis. There is mild central canal stenosis. L2-L3: The disc is bulging. There is mild bilateral facet joint osteoarthritis. There is mild bilater al neural foraminal stenosis. There is mild central canal stenosis. L3-L4: The disc is bulging. There is mild right and moderate left facet joint osteoarthritis. There i s mild right and moderate left neural foraminal stenosis. There is mild central canal stenosis. L4-L5: There is moderate right and severe left facet joint osteoarthritis. There is moderate bilatera l neural foraminal stenosis. There is no central canal stenosis. L5-S1: The disc is bulging. There is moderate right and severe left facet joint osteoarthritis. There is mild right and moderate left neural foraminal stenosis. There is no central canal stenosis. IMPRESSION: 1. Moderate lumbar spondylosis. 2. Anterior and posterior fusion procedures from L4 to S1. Reviewed, dictated and finalized at location A.
== END 2022-01-19 12:51 | disposition home or self-care (01) ==
LOC: CHSIMG 12:51
PROVIDERS: PCP Family Medicine
DX: Z48.811 Encounter for surgical aftercare following surgery on the nervous system (principal)
CPT/HCPCS: 72131

== ENCOUNTER 2022-03-30 08:27 | Outpatient (CLI) | payer MEDICARE, SELFPAY ==
[2022-03-30 08:38] LABS: Hemoglobin 12.7 g/dL (12.4-15.3); Mean Corpuscular HGB Conc 33.4 g/dL (32.0-36.0); Mean Corpuscular Hemoglobin 31.7 pg (27.0-31.0); Mean Corpuscular Volume 94.8 fL (78.0-102.0); Mean Platelet Volume 9.3 fl (8.7-11.0); Platelet Count Result 257 K/mm3 (150-420); Red Blood Count 4.01 M/mm3 (4.70-6.10); Red Cell Distribution Width 13.5 % (11.6-14.4); White Blood Count 8.1 K/mm3 (4.8-10.8)
[2022-03-30 09:10] LABS: Alanine Aminotransferase 14 U/L (16-63); Albumin Level 3.3 g/dL (3.4-5.0); Alkaline Phosphatase 113 U/L (46-116); Anion Gap 5 mmol/L (8-16); Aspartate Amino Transferase 18 U/L (15-37); Bilirubin,Total 0.5 mg/dL (0.00-1.00); Blood Urea Nitrogen 16 mg/dL (7-18); CRP 3.8 mg/dL (0.0-0.9); Calcium 8.6 mg/dL (8.5-10.1); Carbon Dioxide 30 mmol/L (21-32); Chloride 105 mmol/L (98-108); Estimated Glomerular Filt Rate > 60; Glucose 105 mg/dL (70-99); Osmolality Calculated 291 mOsm/kg (285-295); Sodium 140 mmol/L (136-145); Total Protein 7.2 g/dL (6.4-8.2)
[2022-03-30 09:48] LABS: Erythrocyte Sedimentation Rate 50 mm/hr (0-20)
== END 2022-03-30 08:28 | disposition home or self-care (01) ==
LOC: CHSLAB 08:30
PROVIDERS: PCP Family Medicine; Visit Provider Internal Medicine
DX: L71.9 Rosacea, unspecified (principal); M35.3 Polymyalgia rheumatica; M19.90 Unspecified osteoarthritis, unspecified site
CPT/HCPCS: 36415; 80053; 85027; 85652; 86140

== ENCOUNTER 2022-06-09 11:16 | Outpatient (CLI) | payer MEDICARE, SELFPAY ==
[2022-06-09 11:25] LABS: Hematocrit 41.9 % (37.0-46.0); Hemoglobin 14.1 g/dL (12.4-15.3); Mean Corpuscular HGB Conc 33.7 g/dL (32.0-36.0); Mean Corpuscular Hemoglobin 31.9 pg (27.0-31.0); Mean Corpuscular Volume 94.8 fL (78.0-102.0); Mean Platelet Volume 9.1 fl (8.7-11.0); Platelet Count Result 242 K/mm3 (150-420); Red Blood Count 4.42 M/mm3 (4.70-6.10); Red Cell Distribution Width 13.4 % (11.6-14.4); White Blood Count 11.1 K/mm3 (4.8-10.8)
[2022-06-09 11:30] LABS: Appearance Urine Clear (Clear); Bilirubin Urine Negative (Negative); Blood Urine Negative (Negative); Color Urine Yellow (Yellow); Glucose Urine UA Negative (Negative); Ketones Urine Negative (Negative); Leukocyte Esterase Ur Negative LEU/UL (Negative); Nitrate Urine Negative (Negative); Protein Urine Negative (Negative); Urobilinogen Urine 0.2 mg/dL (0.2-1.0)
[2022-06-09 11:31] LABS: Add Urine Microscopic? NO
[2022-06-09 12:29] LABS: Erythrocyte Sedimentation Rate 43 mm/hr (0-20)
[2022-06-09 13:25] LABS: Alanine Aminotransferase 32 U/L (16-63); Albumin Level 3.7 g/dL (3.4-5.0); Alkaline Phosphatase 137 U/L (46-116); Anion Gap 7 mmol/L (8-16); Aspartate Amino Transferase 18 U/L (15-37); Bilirubin,Total 0.5 mg/dL (0.00-1.00); Blood Urea Nitrogen 16 mg/dL (7-18); Calcium 9.2 mg/dL (8.5-10.1); Carbon Dioxide 30 mmol/L (21-32); Chloride 104 mmol/L (98-108); Estimated Glomerular Filt Rate > 60; Glucose 104 mg/dL (70-99); Osmolality Calculated 293 mOsm/kg (285-295); Potassium 4.1 mmol/L (3.5-5.1); Sodium 141 mmol/L (136-145); Total Protein 7.6 g/dL (6.4-8.2)
== END 2022-06-09 11:17 | disposition home or self-care (01) ==
LOC: CHSLAB 11:17
PROVIDERS: PCP Internal Medicine; Visit Provider Internal Medicine
DX: M19.90 Unspecified osteoarthritis, unspecified site (principal); M35.3 Polymyalgia rheumatica
CPT/HCPCS: 36415; 80053; 81003; 85027; 85652; 86140

== ENCOUNTER 2022-08-13 08:50 | Outpatient (CLI) | payer MEDICARE, SELFPAY ==
[2022-08-13 09:09] LABS: Basophils Absolute Auto 0.05 K/mm3 (0.00-0.10); Basophils Percent Auto 0.5 % (0.0-1.0); Eosinophils Absolute Auto 0.37 K/mm3 (0.02-0.50); Hemoglobin 14.1 g/dL (12.4-15.3); Immature Granulocyte Absolute 0.07 K/mm3 (0.00-0.00); Immature Granulocyte Percent A 0.8 % (0.0-0.0); Lymphocytes Absolute Auto 1.66 K/mm3 (1.10-4.50); Lymphocytes Percent Auto 17.8 % (18.0-42.0); Mean Corpuscular HGB Conc 34.4 g/dL (32.0-36.0); Mean Corpuscular Hemoglobin 32.9 pg (27.0-31.0); Mean Corpuscular Volume 95.6 fL (78.0-102.0); Mean Platelet Volume 9.6 fl (8.7-11.0); Monocytes Absolute Auto 0.74 K/mm3 (0.10-0.90); Neutrophils Absolute Auto 6.4 K/mm3 (1.7-7.2); Neutrophils Percent Auto 68.9 % (50.0-70.0); Platelet Count Result 232 K/mm3 (150-420); Red Blood Count 4.29 M/mm3 (4.70-6.10); Red Cell Distribution Width 13.5 % (11.6-14.4); White Blood Count 9.3 K/mm3 (4.8-10.8)
--- NOTE | 2022-08-13 09:13 | ECG_ITS ---
Measurements Intervals [place] Rate: 79 P: 43 WV: 179 QRS: 15 QRSD: 92 T: 48 QT: 377 QTc: 432 Interpretive Statements SINUS RHYTHM ATRIAL PREMATURE COMPLEXES DELAYED PRECORDIAL R/S TRANSITION BASELINE WANDER- V3, V6 BORDERLINE ECG COMPARED TO ECG 12/20/2021 15:19:47 NO SIGNIFICANT CHANGES Electronically Signed On 08-13-2022 9:25:05 CDT by Santi Rosenbaum D.O.
[2022-08-13 09:15] LABS: Appearance Urine Clear (Clear); Bilirubin Urine Negative (Negative); Blood Urine Negative (Negative); Color Urine Yellow (Yellow); Glucose Urine UA Negative (Negative); Ketones Urine Negative (Negative); Leukocyte Esterase Ur Negative (Negative); Nitrate Urine Negative (Negative); Protein Urine Negative (Negative); Urobilinogen Urine 0.2 mg/dL (0.2-1.0); pH Urine 6.5 (5.0-8.0)
[2022-08-13 09:18] LABS: Add Urine Microscopic? NO
[2022-08-13 09:46] LABS: Alanine Aminotransferase 31 U/L (16-63); Albumin Level 3.6 g/dL (3.4-5.0); Alkaline Phosphatase 131 U/L (46-116); Anion Gap 8 mmol/L (8-16); Aspartate Amino Transferase 25 U/L (15-37); Bilirubin,Total 0.7 mg/dL (0.00-1.00); Blood Urea Nitrogen 17 mg/dL (7-18); Calcium 8.5 mg/dL (8.5-10.1); Carbon Dioxide 28 mmol/L (21-32); Chloride 105 mmol/L (98-108); Estimated Glomerular Filt Rate > 60; Glucose 103 mg/dL (70-99); Osmolality Calculated 293 mOsm/kg (285-295); Potassium 4.2 mmol/L (3.5-5.1); Sodium 141 mmol/L (136-145); Total Protein 7.1 g/dL (6.4-8.2)
== END 2022-08-13 08:51 | disposition home or self-care (01) ==
LOC: CHSLAB 08:52
PROVIDERS: PCP Family Medicine; Visit Provider Family Medicine
DX: Z01.810 Encounter for preprocedural cardiovascular examination (principal); I10 Essential (primary) hypertension; M35.3 Polymyalgia rheumatica
CPT/HCPCS: 36415; 80053; 81003; 85025; 93005

== ENCOUNTER 2022-10-14 10:23 | Outpatient (CLI) | payer MEDICARE, SELFPAY ==
[2022-10-14 13:23] LABS: Basophils Absolute Auto 0.1 K/mm3 (0.0-0.1); Basophils Percent Auto 0.8 % (0.2-1.2); Eosinophils Absolute Auto 0.4 K/mm3 (0-0.3); Eosinophils Percent Auto 3.9 % (0-4.4); Hematocrit 43.3 % (42.0-52.0); Hemoglobin 14.3 g/dL (14.0-18.0); Immature Granulocyte Absolute 0.05 K/mm3 (0.00-0.031); Immature Granulocyte Percent A 0.5 % (0-0.5); Lymphocytes Absolute Auto 1.96 K/mm3 (0.9-3.2); Lymphocytes Percent Auto 21.3 % (18.3-44.2); Mean Corpuscular Hemoglobin 32.3 pg (26-34); Mean Corpuscular Volume 97.7 fl (80-100); Monocytes Absolute Auto 0.8 K/mm3 (0.1-0.6); Monocytes Percent Auto 8.9 % (2.6-8.5); Neutrophils Absolute Auto 5.9 K/mm3 (1.3-6.7); Neutrophils Percent Auto 64.6 % (45.5-73.1); Platelet Count Result 242 k/mm3 (150-375); Red Blood Count 4.43 M/mm3 (4.6-6.20); Red Cell Distribution Width 13.1 % (11.5-14.5); White Blood Count 9.2 K/mm3 (4.5-10.0)
[2022-10-14 13:40] LABS: Alanine Aminotransferase 27 U/L (6-50); Albumin Level 4.3 g/dL (3.5-5.1); Alkaline Phosphatase 120 U/L (38-126); Anion Gap 4 mmol/L (8-16); Aspartate Amino Transferase 30 U/L (17-59); Bilirubin,Total 0.7 mg/dL (0.2-1.3); Blood Urea Nitrogen 22 mg/dL (9-20); Calcium 9.2 mg/dL (8.4-10.2); Carbon Dioxide 30 mmol/L (22-30); Chloride 106 mmol/L (98-107); Cholesterol 187 mg/dL (0-200); Estimated Glomerular Filt Rate > 60; Glucose 87 mg/dL (65-110); HDL Direct 39 mg/dL; Potassium 4.1 mmol/L (3.4-5.0); Sodium 140 mmol/L (137-145); Triglycerides 150 mg/dL (<150)
[2022-10-14 13:51] LABS: LDL Cholesterol Direct 118 mg/dL
[2022-10-14 14:09] LABS: Prostate Specific Antigen 0.3 ng/mL (< OR = 4.0)
[2022-10-14 14:30] LABS: Vitamin D 25 Hydroxy 41.2 ng/mL
[2022-10-15 00:44] LABS: Hemoglobin A1C 5.6 % (<5.7)
== END 2022-10-14 10:24 | disposition home or self-care (01) ==
LOC: ANHGOSHLAB 10:26
PROVIDERS: PCP Family Medicine; Visit Provider Family Medicine
DX: M54.42 Lumbago with sciatica, left side (principal); G89.29 Other chronic pain; Z12.5 Encounter for screening for malignant neoplasm of prostate; I10 Essential (primary) hypertension; R73.9 Hyperglycemia, unspecified; E78.5 Hyperlipidemia, unspecified; M35.3 Polymyalgia rheumatica; E53.8 Deficiency of other specified B group vitamins; E55.9 Vitamin D deficiency, unspecified
CPT/HCPCS: 36415; 80053; 80061; 82306; 82607; 83036; 84153; 84443; 85025; G0103

== ENCOUNTER 2023-04-21 10:04 | Outpatient (CLI) | payer MEDICARE, SELFPAY ==
[2023-04-21 14:01] LABS: Hemoglobin A1C 5.9 % (<5.7)
[2023-04-21 14:16] LABS: Alanine Aminotransferase 30 U/L (6-50); Albumin Level 4.4 g/dL (3.5-5.1); Alkaline Phosphatase 90 U/L (38-126); Anion Gap 9 mmol/L (8-16); Aspartate Amino Transferase 41 U/L (17-59); Bilirubin,Total 1.1 mg/dL (0.2-1.3); Blood Urea Nitrogen 23 mg/dL (9-20); Calcium 9.2 mg/dL (8.4-10.2); Carbon Dioxide 25 mmol/L (22-30); Chloride 106 mmol/L (98-107); Estimated Glomerular Filt Rate > 60; Glucose 104 mg/dL (65-110); Potassium 4.2 mmol/L (3.4-5.0); Sodium 140 mmol/L (137-145)
== END 2023-04-21 10:05 | disposition home or self-care (01) ==
LOC: ANHGOSHLAB 10:06
PROVIDERS: PCP Family Medicine; Visit Provider Family Medicine
DX: R73.9 Hyperglycemia, unspecified (principal); I10 Essential (primary) hypertension
CPT/HCPCS: 36415; 80053; 83036

== ENCOUNTER 2023-12-27 09:50 | Outpatient (CLI) | payer MEDICARE, SELFPAY ==
[2023-12-27 14:45] LABS: Vitamin D 25 Hydroxy 31.4 ng/mL
[2023-12-27 15:31] LABS: Prostate Specific Antigen 0.3 ng/mL (< OR = 4.0)
[2023-12-27 15:55] LABS: Hemoglobin A1C 5.7 % (<5.7)
== END 2023-12-27 09:51 | disposition home or self-care (01) ==
PROVIDERS: PCP Family Medicine; Visit Provider Family Medicine
DX: E53.8 Deficiency of other specified B group vitamins (principal); Z12.5 Encounter for screening for malignant neoplasm of prostate; E11.9 Type 2 diabetes mellitus without complications; E55.9 Vitamin D deficiency, unspecified
CPT/HCPCS: 36415; 82306; 82607; 83036; 84153; 84443; G0103

== ENCOUNTER 2024-04-11 03:26 | Emergency (ER) | payer MEDICARE, SELFPAY ==
--- NOTE | ~2024-04-11 | CT_ITS ---
Non-contrast CT scan of the Abdomen and Pelvis Clinical indication: Left flank pain Technique: 2.5 mm axial scans were obtained through the abdomen and pelvis without intravenous or or al contrast. Dose reduction technique was used on this scan by utilizing automated exposure control a nd iterative reconstruction technique. The dose-length product (DLP) was 1151.51 mGy-cm. COMPARISON: 12/20/2021 Findings: Images through the lung bases reveal no abnormalities. 2 mm nonobstructing left renal stone present. There are 2 mm and 1 mm distal left ureteral stones (ax ial images 179, 174). There is probable minimal left hydroureter and minimal fullness of left renal c ollecting system. No right hydronephrosis. No right-sided stones. There is nonspecific bilateral sabrina nephric stranding. There is a 14 mm probable hyperdense left renal cyst. There is diffuse hepatic steatosis. The spleen, pancreas, gallbladder, and adrenals appear normal. T here is no aortic aneurysm. There is no evidence of bowel obstruction. Images through the pelvis were performed. There is no evidence of ascites or lymphadenopathy. Urinary bladder unremarkable. Prostate gland and seminal vesicles are unremarkable. Impression: Distal left ureteral stones measuring 2 mm and 1 mm, as above, with minimal fullness of the left eric l collecting system and left ureter. Additional 2 mm nonobstructing left renal stone. 14 mm probable hyperdense left renal cyst. Diffuse hepatic steatosis. Reviewed, dictated and finalized at [facility]. E LEARNING SPECIALIST Impression: Distal left ureteral stones measuring 2 mm and 1 mm, as above, with minimal ful lness of the left renal collecting system and left ureter. Additional 2 mm nonobstructing left renal stone. 14 mm probable hyperdense left renal cyst. Diffuse hepatic steatosis.
[2024-04-11 03:26] VITALS: BP 178/83; PULSE 83; RESP 16; TEMP 36; O2SAT 97
--- NOTE | 2024-04-11 03:45 | PC.NURSE ---
ERP aware of pt's blood pressure. No new orders.
[2024-04-11] MEDS: KETOROLAC 30 MG/ML VIAL (*BKC) IV PUSH (04:07)
[2024-04-11] MEDS: SODIUM CHLORIDE 0.9% IV 1,000 ML 999 ML IV CONT (04:08)
[2024-04-11] MEDS: TAMSULOSIN HCL 0.4 MG CAPSULE PO (04:14)
[2024-04-11 04:18] LABS: Basophils Absolute Auto 0.05 K/mm3 (0.00-0.10); Basophils Percent Auto 0.4 % (0.0-1.0); Eosinophils Absolute Auto 0.02 K/mm3 (0.02-0.50); Eosinophils Percent Auto 0.2 % (1.0-6.0); Hematocrit 43.5 % (37.0-46.0); Hemoglobin 14.6 g/dL (12.4-15.3); Immature Granulocyte Absolute 0.12 K/mm3 (0.00-0.00); Lymphocytes Absolute Auto 1.44 K/mm3 (1.10-4.50); Lymphocytes Percent Auto 11.7 % (18.0-42.0); Mean Corpuscular HGB Conc 33.6 g/dL (32-36); Mean Corpuscular Hemoglobin 33.5 pg (27.0-31.0); Mean Corpuscular Volume 99.8 fL (78.0-102.0); Mean Platelet Volume 9.5 fl (8.7-11.0); Monocytes Absolute Auto 0.79 K/mm3 (0.10-0.90); Monocytes Percent Auto 6.4 % (2.0-11.0); Neutrophils Absolute Auto 9.87 K/mm3 (1.70-7.20); Neutrophils Percent Auto 80.3 % (50.0-70.0); Platelet Count Result 253 K/mm3 (150-420); Red Blood Count 4.36 M/mm3 (4.70-6.10); Red Cell Distribution Width 12.5 % (11.6-14.4); White Blood Count 12.3 K/mm3 (4.8-10.8)
[2024-04-11 04:18] LABS: Add Urine Microscopic? YES; Appearance Urine Clear (Clear); Bilirubin Urine Negative (Negative); Blood Urine 2+ (Negative); Color Urine Light Yellow (Yellow); Glucose Urine UA Negative (Negative); Ketones Urine Negative (Negative); Leukocyte Esterase Ur Negative LEU/UL (Negative); Nitrate Urine Negative (Negative); Protein Urine Negative (Negative); Specific Grav Ur 1.025 (1.010-1.020); Urobilinogen Urine 0.2 mg/dL (0.2-1.0); pH Urine 5.5 (5.0-8.0)
[2024-04-11 04:25] LABS: Bacteria Urine Trace /hpf; Squamous Epithelial Cell Urine Rare /hpf (Few); WBC Urine 0-3 /hpf (0-3)
[2024-04-11 04:31] LABS: Alanine Aminotransferase 44 U/L (16-63); Albumin Level 4.3 g/dL (3.4-5.0); Alkaline Phosphatase 80 U/L (46-116); Anion Gap 11 mmol/L (4-12); Aspartate Amino Transferase 21 U/L (15-37); Bilirubin,Total 0.9 mg/dL (0.00-1.00); Blood Urea Nitrogen 31 mg/dL (7-18); Calcium 9.1 mg/dL (8.5-10.1); Carbon Dioxide 27 mmol/L (21-32); Chloride 99 mmol/L (98-108); Estimated Glomerular Filt Rate 44; Glucose 127 mg/dL (70-99); Osmolality Calculated 292 mOsm/kg (285-295); Potassium 4.1 mmol/L (3.5-5.1); Sodium 137 mmol/L (136-145)
--- NOTE | 2024-04-11 05:32 | ED_ITS ---
HPI - Male Genitourinary General Chief complaint: Urogenital-Male Stated complaint: Kidney Problems Source: patient Mode of arrival: ambulatory Limitations: no limitations History of Present Illness HPI Narrative: patient is a 8-year-old male with a significant past history that presents today with possible kidney stone. Patient states he has had kidney stones the past he feels like he has had 1 again. He has left flank pain on the left side and he also has pain with urination. He is taking his CC medication of relief. He says last time his heels is to Flomax and the kidney stone passed. Complaint: other ( Kidney stone) Onset (ago): week(s) Duration: intermittent Location: left flank Severity: moderate Severity scale (1-10): 4 Quality: aching and dull Exacerbating factors: urination, palpation and medication Associated symptoms: Reports denies other symptoms Related Data Home Medications ?Medication ?Instructions ?Recorded ?Confirmed ?Last Taken ?Type lnknmsirhyhd-ltb-arfco acid-vit 1 tablet PO DAILY 01/29/19 12/27/23 05/30/19 History K-lycop 400 mcg-20 mcg-370 mcg tablet (One-A-Day Men's 50 Plus (with vitamin K)) cholecalciferol (vitamin D3) 50 50 mcg PO DAILY 04/14/22 12/27/23 Unknown History mcg (2,000 unit) capsule acetaminophen 500 mg tablet 1,000 mg PO .PRN PRN 04/21/23 12/27/23 Unknown History (Tylenol Extra Strength) upadacitinib 15 mg tablet,extended 15 mg PO DAILY 04/21/23 12/27/23 Unknown History release 24 hr (Rinvoq) doxepin 10 mg capsule 10 mg PO QHS 12/27/23 12/27/23 Unknown History triamcinolone acetonide 0.1 % 1 applic topical .every 2 weeks 12/27/23 12/27/23 Unknown History topical cream Allergies Allergy/AdvReac Type Severity Reaction Status Date / Time No Known Allergies Allergy Unknown Verified 04/11/24 04:25 Review of Systems 2 Review of Systems: All systems reviewed & are unremarkable except as noted in HPI and below Constitutional: Constitutional: Reports as per HPI Eyes: Eyes: Reports no additional eye complaints ENT: Reports system reviewed and no additional complaints, except as documented Cardiovascular: Cardiovascular: Reports no additional cardiovascular complaints Respiratory: Respiratory: Reports no additional respiratory complaints Gastrointestinal: Gastrointestinal: Reports no additional gastrointestinal complaints Genitourinary: Genitourinary: Reports as per HPI and Reports dysuria Musculoskeletal: Musculoskeletal: Reports back pain Integumentary/Breasts: Skin/Breast: Reports system reviewed and no additional complaints, except as docu Neurologic: Reports system reviewed and no additional complaints, except as documented Psychiatric: Psychiatric: Reports no additional psychiatric complaints Endocrine: Endocrine: Reports no additional endocrine complaints Hematologic/Lymphatic: Hematologic/Lymphatic: Reports no additional hematologic/lymphatic complaints Allergic/Immunologic: Allergic/Immunologic: Reports no additional allergic/immunologic complaints [facility] Past Medical History Medical History Chronic low back pain without sciatica Prediabetes Atopic dermatitis Vitamin D deficiency History of renal stone Hip pain, bilateral (~2018) Polymyalgia rheumatica Hearing loss Essential (primary) hypertension Dyslipidemia Osteoarthritis Surgical History Surgical History History of lumbar discectomy History of lumbar fusion (~12/15/21) History of cataract surgery (~03/2019) b/l History of lumbosacral spine surgery (~08/25/22) revision - excision of scar tissue Status post ablation of incompetent vein using laser (~12/2020) Right greater saphenous vein History of right knee surgery (~10/19/18) medial meniscus repair Family History Family History Other Carcinoma of colon Family history of coronary artery disease Hypertension Malignant neoplasm of prostate Social History Social History Smoking status: Never smoker Second hand tobacco smoke exposure: No Alcohol intake: never Substance use: never Substance use type: does not use Lack of Transportation: No Lack of Food: Never True Current Housing: I Have Housing Concerned About Future Housing: No Difficulty Paying Gas/Electric Bills: No Difficulty Paying for Meds: No Currently Unemployed: No Education: Associate Degree Difficulty w/ Childcare or Family Care: No Gender identity (if verbalized by the patient): Male Exam 2 Const: General: healthy appearing Nutritional Appearance: well nourished Limitations: no limitations HENMT: Head: normal to inspection Ears: TM's normal bilaterally F sana/Nose/Sinus: Normal external nose present Face and sinus: normal facial exam Mouth: Yes Normal oral and palatal mucosa present Teeth and gingiva: dentition normal Throat: posterior oropharynx normal Eyes: Conjunctivae: conjunctivae normal Pupils: Equal, round and reactive pupils present EOM: EOMs intact bilaterally Direct Ophthalmoscopy: no photophobia Neck: Neck: normal visual inspection Chest: Chest palpation & inspection: normal inspection of the chest Resp: Effort & Inspection: normal respiratory effort Auscultation: clear to auscultation bilaterally Cardio: Rate: regular rate Rhythm: regular rhythm Heart sounds: Murmur heart sound present GI: GI Palp: Yes Soft to palpation : General: Yes CVA tenderness Back/Spine/Pelvis: Back: CVA tenderness Skin: General skin exam: normal color Rashes: no rashes Wounds: no wounds Neuro: General: patient oriented x3 Cranial nerves: Yes CN's II-XII intact bilaterally Speech: normal speech Gait exam (Neuro): Normal gait present Extrem: General: normal to inspection Psych: Mental Status: mental status grossly normal Affect: normal affect Attitude: cooperative Course Vital Signs Vital signs: Vital Signs Temperature 96.8 F L 04/11/24 03:26 Pulse Rate 83 04/11/24 03:26 Respiratory Rate 16 04/11/24 03:26 Blood Pressure 178/83 H 04/11/24 03:26 Pulse Oximetry 97 04/11/24 03:26 Oxygen Delivery Room Air 04/11/24 03:26 Temperature 96.8 F L 04/11/24 03:26 Pulse Rate 83 04/11/24 03:26 Respiratory Rate 16 04/11/24 03:26 Blood Pressure 178/83 H 04/11/24 03:26 Pulse Oximetry 97 04/11/24 03:26 Oxygen Delivery Room Air 04/11/24 03:26 MDM - Male Genitourinary MDM Narrative Medical decision making narrative: patient has had kidney stones in the past as this was same. He has left flank pain he has pain with urination. Denies seeing any physical hematuria however. Will do a CT scan of the abdomen and pelvis without contrast. Also go shot of Toradol so helpful with elevators and help with pain. After the CT scan will get full. He does have stone was sent home with [facility] as well. Differential Diagnosis Differential diagnosis: Likely urinary tract infection and other ( Kidney stone) Medical Records Attestation: I reviewed the patient's medical records. Lab Data Attestation: I reviewed the patient's lab results. 04/11/24 04:05 04/11/24 04:05 Labs: Lab Results 04/11/24 04/11/24 Range/Units 04:05 04:16 WBC 12.3 H (4.8-10.8) K/mm3 RBC 4.36 L (4.70-6.10) M/mm3 Hgb 14.6 (12.4-15.3) g/dL Hct 43.5 (37.0-46.0) % MCV 99.8 (78.0-102.0) fL MCH 33.5 H (27.0-31.0) pg MCHC 33.6 (32-36) g/dL RDW 12.5 (11.6-14.4) % Plt Count 253 (150-420) K/mm3 MPV 9.5 (8.7-11.0) fl Immature Gran % (Auto) 1.0 H (0.0-0.0) % Neut % (Auto) 80.3 H (50.0-70.0) % Lymph % (Auto) 11.7 L (18.0-42.0) % [place] % (Auto) 6.4 (2.0-11.0) % Eos % (Auto) 0.2 L (1.0-6.0) % Baso % (Auto) 0.4 (0.0-1.0) % Lymph # (Auto) 1.44 (1.10-4.50) K/mm3 [place] # (Auto) 0.79 (0.10-0.90) K/mm3 Eos # (Auto) 0.02 (0.02-0.50) K/mm3 Baso # (Auto) 0.05 (0.00-0.10) K/mm3 Abs Immat Gran (auto) 0.12 H (0.00-0.00) K/mm3 Absolute Neuts (auto) 9.87 H (1.70-7.20) K/mm3 Absolute Nucleated RBC 0.00 (0.00-0.00) K/mm3 Nucleated RBC % 0.0 (0-0.0) % Sodium 137 (136-145) mmol/L Potassium 4.1 (3.5-5.1) mmol/L Chloride 99 (98-108) mmol/L Carbon Dioxide 27 (21-32) mmol/L Anion Gap 11 (4-12) mmol/L BUN 31 H (7-18) mg/dL Creatinine 1.57 H (0.70-1.30) mg/dL Estim Creat Clear Calc Not Reportable Estimated GFR 44 L (59 - ) Glucose 127 H (70-99) mg/dL Calculated Osmolality 292 (285-295) mOsm/kg Calcium 9.1 (8.5-10.1) mg/dL Total Bilirubin 0.9 (0.00-1.00) mg/dL AST 21 (15-37) U/L ALT 44 (16-63) U/L Alkaline Phosphatase 80 (46-116) U/L Total Protein 8.0 (6.4-8.2) g/dL Albumin 4.3 (3.4-5.0) g/dL Urine Color Light yellow (Yellow) Urine Appearance Clear (Clear) Urine pH 5.5 (5.0-8.0) Ur Specific [place] 1.025 H (1.010-1.020) Urine Protein Negative (Negative) Urine Glucose (UA) Negative (Negative) Urine Ketones Negative (Negative) Ur Blood (Man) 2+ H (Negative) Urine Nitrate Negative (Negative) Urine Bilirubin Negative (Negative) Urine Urobilinogen 0.2 (0.2-1.0) mg/dL Leukocyte Esterase Rfl Negative (Negative) JACKIE/UL Urine RBC 6-10 H (0-2) /hpf Urine WBC 0-3 (0-3) /hpf Ur Squamous Epith Cells Rare (Few) /hpf Urine Bacteria Trace (None) /hpf ABG Data Attestation: I personally reviewed and interpreted this ABG as follows: Imaging Data Attestation: I personally reviewed and interpreted this imaging study as follows: Discharge Plan Discharge Clinical Impression: Kidney stone Patient Disposition: Home, Self-Care Condition: Stable Instructions: Kidney Stones (ED) Patient Language: [place] Islander Prescriptions: New tamsulosin [Flomax] 0.4 mg capsule 0.4 mg PO DAILY Qty: 14 0RF ketorolac 10 mg tablet 10 mg PO Q8H PRN (Reason: pain) 3 Days Qty: 9 0RF No Action One-A-Day Men's 50 Plus(vit K) 400-20-370 mcg tablet 1 tablet PO DAILY cholecalciferol (vitamin D3) 50 mcg (2,000 unit) capsule 50 mcg PO DAILY Rinvoq 15 mg tablet extended release 24 hr 15 mg PO DAILY acetaminophen [Tylenol Extra Strength] 500 mg tablet 1,000 mg PO .PRN PRN duloxetine [Cymbalta] 60 mg capsule,delayed release(DR/EC) 60 mg PO BID Qty: 180 1RF doxepin 10 mg capsule 10 mg PO QHS triamcinolone acetonide 0.1 % cream 1 applic topical .every 2 weeks metoprolol succinate 50 mg tablet extended release 24 hr 50 mg PO DAILY Qty: 90 1RF lisinopril-hydrochlorothiazide 20-12.5 mg tablet 1 tablet PO DAILY Qty: 90 1RF amlodipine 5 mg tablet 5 mg PO DAILY Qty: 90 1RF Follow-up/Referrals: Darby Bhardwaj MD [Primary Care Provider] - Time of Disposition: 05:42
[2024-04-11 05:33] VITALS: BP 135/73; PULSE 84; RESP 16; TEMP 36.6; O2SAT 96
== END 2024-04-11 05:48 | disposition home or self-care (01) ==
PROVIDERS: Emergency Provider Family Medicine; PCP Family Medicine
DX: N20.0 Calculus of kidney (principal); I10 Essential (primary) hypertension
CPT/HCPCS: 36415; 74176; 80053; 81001; 85025; 96361; 96374; 99284; A9270; J1885; J7030

== ENCOUNTER 2024-06-28 09:49 | Outpatient (CLI) | payer MEDICARE, SELFPAY ==
--- OUTSIDE RECORDS SUMMARY | 2024-06-28 10:25 | XMS_ITS | Clinical Summary ---
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 Gender Identity Not on file Sexual Orientation Not on file Plan of Treatment Health Maintenance Due Date Last Done Comments Colorectal Cancer Screening Colonoscopy (10 Years) 1955 Hepatitis C 1974 DTaP, Tdap and Td Vaccines ( 1 - Tdap) 10/19/1975 Zoster Vaccines (1 of 2) 2006 Pneumococcal Vaccine: 65+ Ye ars (1 of 1 - PCV) 2021 COVID-19 Vaccine ( - 2023-2 5 season) 2023 RSV Immunization or 60+ Years (1 - 1-dose 75+ series) 10/19/2031 Meningococcal B Vaccine Aged Out No l onger eligible based on patient's age to complete this topic Meningococcal Vaccine Aged Out No rhiannon mayda eligible based on patient's age to complete this topic RSV Immunizations Under 20 Months Aged Out No longer eligible based on patient's age to complete this topic
[2024-06-28 11:59] LABS: Alanine Aminotransferase 36 U/L (6-50); Albumin Level 4.4 g/dL (3.5-5.1); Alkaline Phosphatase 74 U/L (38-126); Anion Gap 10 mmol/L (4-12); Aspartate Amino Transferase 39 U/L (17-59); Bilirubin,Total 0.5 mg/dL (0.2-1.3); Blood Urea Nitrogen 25 mg/dL (9-20); Calcium 8.8 mg/dL (8.4-10.2); Carbon Dioxide 27 mmol/L (22-30); Chloride 105 mmol/L (98-107); Cholesterol 195 mg/dL (0-200); Estimated Glomerular Filt Rate > 60; Glucose 101 mg/dL (65-110); HDL Direct 39 mg/dL; Potassium 4.3 mmol/L (3.4-5.0); Sodium 142 mmol/L (137-145); Triglycerides 304 mg/dL (<150)
[2024-06-28 12:11] LABS: LDL Cholesterol Direct 88 mg/dL
[2024-06-28 12:56] LABS: Hemoglobin A1C 5.7 % (<5.7)
== END 2024-06-28 09:50 | disposition home or self-care (01) ==
PROVIDERS: PCP Family Medicine; Visit Provider Family Medicine
DX: R73.03 Prediabetes (principal); I10 Essential (primary) hypertension; E78.5 Hyperlipidemia, unspecified
CPT/HCPCS: 36415; 80053; 80061; 83036

== ENCOUNTER 2024-10-09 00:31 | Day surgery (SDC) | payer MEDICARE, SELFPAY ==
[2024-09-21 11:39] VITALS: BMI 36.6
--- OUTSIDE RECORDS SUMMARY | 2024-10-09 00:34 | XMS_ITS | Clinical Summary ---
Author Organization 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
[2024-10-09 09:52] VITALS: BP 149/86; PULSE 88; RESP 18; TEMP 36.3; O2SAT 98; BMI 36.1
[2024-10-09] MEDS: LACTATED RINGERS 1,000 ML 150 ML IV CONT (10:09)
--- NOTE | 2024-10-09 10:56 | WPDANESEPPF ---
Anes - Initial Pre Proc Eval Procedure: Operation Date: 10/09/24 11:30 Proposed Procedures p Screening Colonoscopy - Souleymane Valentin MD Date/Time: 10/09/24 10:56 Surgeon: Souleymane Valentin MD Pre Op Diagnosis: screening neoplasm Patient Data Age: 68 Gender: M Height: 1.88 m Weight: 127.7 kg Last Vital Signs Temp 97.3 F L 10/09/24 09:52 Pulse 88 10/09/24 09:52 Resp 18 10/09/24 09:52 BP 149/86 H 10/09/24 09:52 Pulse Ox 98 10/09/24 09:52 O2 Del Method Room Air 10/09/24 09:52 Allergies Allergy/AdvReac Type Severity Reaction Status Date / Time No Known Allergies Allergy Unknown Verified 10/09/24 09:58 Home Medications ?Medication ?Instructions ?Recorded ?Confirmed ?Type sndxblrrhnec-inl-brcvc acid-vit 1 tablet PO DAILY 01/29/19 10/09/24 History K-lycop 400 mcg-20 mcg-370 mcg tablet (One-A-Day Men's 50 Plus (with vitamin K)) cholecalciferol (vitamin D3) 50 50 mcg PO DAILY 04/14/22 10/09/24 History mcg (2,000 unit) capsule doxepin 10 mg capsule 10 mg PO QHS 12/27/23 10/09/24 History triamcinolone acetonide 0.1 % 1 applic topical .every 2 weeks 12/27/23 09/21/24 History topical cream metoprolol succinate 50 mg 50 mg PO DAILY #90 tabs 06/06/24 10/09/24 Rx tablet,extended release 24 hr acetaminophen 500 mg tablet 1,000 mg PO DAILY 06/28/24 10/09/24 History (Tylenol Extra Strength) duloxetine 60 mg capsule,delayed 60 mg PO BID #180 caps 07/26/24 10/09/24 Rx release (Cymbalta) lisinopril 20 1 tablet PO DAILY #90 tabs 09/18/24 10/09/24 Rx mg-hydrochlorothiazide 12.5 mg tablet amlodipine 5 mg tablet 5 mg PO DAILY #90 tabs 09/19/24 10/09/24 Rx nemolizumab-ilto 30 mg 30 mg subcut ONCE 09/21/24 10/09/24 History subcutaneous pen injector (Nemluvio) Patient hx anesthesia problems: none Family hx anesthesia problems: none Results Review: All pre-operative results and documents have been reviewed as part of the pre-operative evaluation. [facility] Past Medical History Medical History Chronic venous insufficiency of lower extremity Chronic low back pain without sciatica Prediabetes Atopic dermatitis Vitamin D deficiency History of renal stone 10/15, 04/21 Hip pain, bilateral (~2018) Polymyalgia rheumatica Hearing loss Essential (primary) hypertension Dyslipidemia Osteoarthritis Surgical History Surgical History History of lumbar discectomy History of lumbar fusion (~12/15/21) History of cataract surgery (~03/2019) b/l History of lumbosacral spine surgery (~08/25/22) revision - excision of scar tissue Status post ablation of incompetent vein using laser (~12/2020) Right greater saphenous vein History of right knee surgery (~10/19/18) medial meniscus repair Family History Family History Other Carcinoma of colon Family history of coronary artery disease Hypertension Malignant neoplasm of prostate Social History Social History Smoking status: Never smoker Second hand tobacco smoke exposure: No Alcohol intake: never Substance use: never Substance use type: does not use Lack of Transportation: No Lack of Food: Never True Current Housing: I Have Housing Concerned About Future Housing: No Difficulty Paying Gas/Electric Bills: No Difficulty Paying for Meds: No Currently Unemployed: No Education: Associate Degree Difficulty w/ Childcare or Family Care: No Living arrangements: with family Gender identity (if verbalized by the patient): Male Spiritual care concerns: No Anes - Eval Final PreProcedure Day of Procedure 10/09/24 10:56 Patient weight: obese Lungs: normal air movement Airway: Mallampati scale class II Neurological: alert and oriented Last oral intake: >/= 8 hours ASA classification: III Emergent: no Anesthetic plan: proceed Anesthesia type and monitoring: general GIVS and standard monitoring Results Review: All pre-operative results and documents have been reviewed as part of the pre-operative evaluation. HTN, hx of polymyalgia, now deemed OA. Pt can walk 1-2 fos, no cp or sob. Informed Consent: The patient's anesthetic plan and its attendant risks and benefits were discussed with the patient/family/POA. Questions were solicited and answers provided to the satisfaction of the patient/family/POA.
--- NOTE | 2024-10-09 11:22 | PM.IMHP ---
H&P: HPI History of Present Illness Date/Time: 10/09/24 11:22 Chief Complaint: Family history of colorectal cancer Narrative: This patient has family history of colorectal cancer. Review of Systems Review of Systems: All systems reviewed & are unremarkable except as noted in HPI and below PMFSH Past Medical History Medical History Chronic venous insufficiency of lower extremity Chronic low back pain without sciatica Prediabetes Atopic dermatitis Vitamin D deficiency History of renal stone 10/15, 04/21 Hip pain, bilateral (~2018) Polymyalgia rheumatica Hearing loss Essential (primary) hypertension Dyslipidemia Osteoarthritis Surgical History Surgical History History of lumbar discectomy History of lumbar fusion (~12/15/21) History of cataract surgery (~03/2019) b/l History of lumbosacral spine surgery (~08/25/22) revision - excision of scar tissue Status post ablation of incompetent vein using laser (~12/2020) Right greater saphenous vein History of right knee surgery (~10/19/18) medial meniscus repair Family History Family History Other Carcinoma of colon Family history of coronary artery disease Hypertension Malignant neoplasm of prostate Social History Social History Smoking status: Never smoker Second hand tobacco smoke exposure: No Alcohol intake: never Substance use: never Substance use type: does not use Lack of Transportation: No Lack of Food: Never True Current Housing: I Have Housing Concerned About Future Housing: No Difficulty Paying Gas/Electric Bills: No Difficulty Paying for Meds: No Currently Unemployed: No Education: Associate Degree Difficulty w/ Childcare or Family Care: No Living arrangements: with family Gender identity (if verbalized by the patient): Male Spiritual care concerns: No Meds Home Medications and Allergies Home Medications ?Medication ?Instructions ?Recorded ?Confirmed ?Type kespvngvdtpl-wnf-etmrm acid-vit 1 tablet PO DAILY 01/29/19 10/09/24 History K-lycop 400 mcg-20 mcg-370 mcg tablet (One-A-Day Men's 50 Plus (with vitamin K)) cholecalciferol (vitamin D3) 50 50 mcg PO DAILY 04/14/22 10/09/24 History mcg (2,000 unit) capsule doxepin 10 mg capsule 10 mg PO QHS 12/27/23 10/09/24 History triamcinolone acetonide 0.1 % 1 applic topical .every 2 weeks 12/27/23 09/21/24 History topical cream metoprolol succinate 50 mg 50 mg PO DAILY #90 tabs 06/06/24 10/09/24 Rx tablet,extended release 24 hr acetaminophen 500 mg tablet 1,000 mg PO DAILY 06/28/24 10/09/24 History (Tylenol Extra Strength) duloxetine 60 mg capsule,delayed 60 mg PO BID #180 caps 07/26/24 10/09/24 Rx release (Cymbalta) lisinopril 20 1 tablet PO DAILY #90 tabs 09/18/24 10/09/24 Rx mg-hydrochlorothiazide 12.5 mg tablet amlodipine 5 mg tablet 5 mg PO DAILY #90 tabs 09/19/24 10/09/24 Rx nemolizumab-ilto 30 mg 30 mg subcut ONCE 09/21/24 10/09/24 History subcutaneous pen injector (Nemluvio) Allergies Allergy/AdvReac Type Severity Reaction Status Date / Time No Known Allergies Allergy Unknown Verified 10/09/24 09:58 Vital Signs Vital Signs - 24 hr 10/09/24 09:52 Temperature 97.3 F L Pulse Rate 88 Respiratory Rate 18 Blood Pressure 149/86 H Pulse Oximetry 98 Oxygen Delivery Room Air Exam Const: General: cooperative and healthy appearing Resp: Effort & Inspection: normal respiratory effort and able to speak in complete sentences Auscultation: clear to auscultation bilaterally Cardio: Rate: regular rate Rhythm: regular rhythm GI: Inspection: normal to inspection GI Palp: No No hepatosplenomegaly present Auscultation: normal bowel sounds Rectal Exam: deferred Skin: General skin exam: normal color Psych: Appearance: grossly normal Mental Status: mental status grossly normal Assessment and Plan Assessment and plan (1) Family history of colorectal cancer: Code(s): Z80.0 - Family history of malignant neoplasm of digestive organs Status: Acute Assessment and Plan: The patient is deemed a good candidate for the procedure. Consent signed. Will proceed.
[2024-10-09 11:57] VITALS: BP 139/85; PULSE 79; RESP 18; O2SAT 99
[2024-10-09 12:07] VITALS: BP 143/84; PULSE 70; RESP 18; O2SAT 99
[2024-10-09 12:17] VITALS: BP 137/87; PULSE 72; RESP 18; O2SAT 99
== END 2024-10-09 12:24 | disposition home or self-care (01) ==
PROVIDERS: PCP Family Medicine; Referring Provider Family Medicine; Visit Provider Internal Medicine Gastroenterology
PROC: 0DJD8ZZ Inspection of Lower Intestinal Tract, Via Natural or Artificial Opening Endoscopic (ICD-10-PCS; CPT 45378; principal; 2024-10-09 11:30)
DX: Z12.11 Encounter for screening for malignant neoplasm of colon (principal); K64.8 Other hemorrhoids; K57.30 Diverticulosis of large intestine without perforation or abscess without bleeding; R73.03 Prediabetes; E55.9 Vitamin D deficiency, unspecified; I10 Essential (primary) hypertension; E78.5 Hyperlipidemia, unspecified; M35.3 Polymyalgia rheumatica; G89.29 Other chronic pain; M54.50 Low back pain, unspecified; L20.9 Atopic dermatitis, unspecified; M19.90 Unspecified osteoarthritis, unspecified site; E66.9 Obesity, unspecified; Z68.36 Body mass index [BMI] 36.0-36.9, adult; Z79.85 Long-term (current) use of injectable non-insulin antidiabetic drugs; Z98.890 Other specified postprocedural states; Z98.1 Arthrodesis status; Z87.442 Personal history of urinary calculi; Z86.718 Personal history of other venous thrombosis and embolism; Z80.0 Family history of malignant neoplasm of digestive organs; Z80.42 Family history of malignant neoplasm of prostate; Z82.49 Family history of ischemic heart disease and other diseases of the circulatory system
CPT/HCPCS: G0105; J2003; J2405; J2704; J7120

== ENCOUNTER 2025-01-07 18:18 | Observation (INO) | payer MEDICARE, SELFPAY ==
--- NOTE | 2025-01-07 | CONSULT_PTH ---
PATIENT: Ry Barbour LOC: [facility] U#:[id number] AGE/SX: 69/M ROOM: [facility] RE01/07/[address]: Meliza Anderson APRN : 1955 BED: 1 DIS: 01/09/2025 SPEC #: [id number] RECD: 01/08/25 13:34 STATUS: IRMA REKya #: [id number] RAJIV: 01/07/25 00:[address]: Douglas Rashid DEPT: [facility] Consult RECD BY: Jennifer Shafer MLT, ([facility]) ENTERED: 01/08/25 13:34 SP TYPE: Consult OTHR DR: BENJAMIN Vilchis MD Tissues: A - Peripheral Smear Procedures: Hematology Consult
--- NOTE | ~2025-01-07 | CT_ITS ---
CT abdomen pelvis wo con INDICATION:left flank pain/ pain while urinating . COMPARISON: None. TECHNIQUE: Axial 2.5 mm images of the abdomen were obtained without IV or oral contrast. Diagnostic sensitivity is limited due to lack of IV contrast. FINDINGS: The lung bases are clear. The liver parenchyma is unremarkable. No intrahepatic mass or ductal dilatation is evident. The gallbladder is unremarkable. The pancreas and spleen are normal in appearance. The adrenal glands are symmetric in size. The kidneys are unremarkable. No intrarenal stones are noted. There is no hydronephrosis. Evaluation of the stomach and bowel loops are limited due to lack of oral contrast. The appendix is normal in appearance. There is colonic diverticulosis without evidence of acute diverticulitis. Thickening of the bladder wall with adjacent stranding suggestive of cystitis. No free intraperitoneal fluid or air is evident. There is no significant retroperitoneal lymphadenopathy. The aorta, visceral vessels and renal arteries demonstrate normal caliber. The lower thoracic and lumbar vertebrae are in normal alignment. IMPRESSION: Thickening and infiltrative changes of the bladder suggestive of cystitis. Correlation with urinalysis. All CT scans at this facility are performed using low dose modulation techniques as appropriate to perform exam including the following: automated exposure control; use of iterative reconstruction technique; adjustment of the mA and/or kV according to patient size (this includes techniques or standardized protocols for targeted exams where dose is matched to indication/reason for exam). Reviewed, dictated and finalized at location S. IMPRESSION: Thickening and infiltrative changes of the bladder suggestive of cystitis. [place] with urinalysis. All CT scans at this facility are performed using low dose modulation techniqu es as appropriate to perform exam including the following: automated exposure c ontrol; use of iterative reconstruction technique; adjustment of the mA and/or kV according to patient size (this includes techniques or standardized protocol s for targeted exams where dose is matched to indication/reason for exam).
[2025-01-07 18:18] VITALS: BP 161/84; PULSE 89; RESP 18; TEMP 37.3; O2SAT 98
--- OUTSIDE RECORDS SUMMARY | 2025-01-07 18:20 | XMS_ITS | Clinical Summary ---
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
--- NOTE | 2025-01-07 19:30 | ED.ABDPAIN ---
HPI - Abdominal Pain General Chief Complaint: Urogenital-Male Stated Complaint: left side flank pain Source: patient Mode of arrival: ambulatory Limitations: no limitations History of Present Illness HPI narrative: Patient is a 69-year-old male with left flank pain for the past day. Patient had kidney stones in the past and this is the similar pain. The pain wraps around the left back and to the left groin. This been going on for the past week. More so in the last day. MD elicited complaint: abdominal pain (Left flank and left lower quadrant and left middle lateral back pain) and flank pain (Left) Pertinent past history: other (Hypertension, hyperlipidemia, anxiety and depression) Onset (ago): day(s) (1) Pain Consistency: constant Location: suprapubic Severity: moderate Pain scale (0-10): 5 Quality: cramping, aching and sharp Radiation: suprapubic Migration to: no migration Exacerbating factors: nothing Relieving factors: nothing Context: confirms other (Patient having acute onset of left flank pain today that is on resolving on its own so he comes to emergency room for evaluation) Associated symptoms: denies other symptoms Treatments prior to arrival: other (None) Related Data Home Medications ?Medication ?Instructions ?Recorded ?Confirmed ?Last Taken ?Type kdwmojqnpddm-hqr-iwdcy acid-vit 1 tablet PO DAILY 01/29/19 10/09/24 10/08/24 History K-lycop 400 mcg-20 mcg-370 mcg tablet (One-A-Day Men's 50 Plus (with vitamin K)) cholecalciferol (vitamin D3) 50 50 mcg PO DAILY 04/14/22 10/09/24 10/08/24 History mcg (2,000 unit) capsule doxepin 10 mg capsule 10 mg PO QHS 12/27/23 10/09/24 10/07/24 History triamcinolone acetonide 0.1 % 1 applic topical .every 2 weeks 12/27/23 09/21/24 09/21/24 History topical cream acetaminophen 500 mg tablet 1,000 mg PO DAILY 06/28/24 10/09/24 10/08/24 History (Tylenol Extra Strength) nemolizumab-ilto 30 mg 30 mg subcut ONCE 09/21/24 10/09/24 09/22/24 History subcutaneous pen injector (Nemluvio) Allergies Allergy/AdvReac Type Severity Reaction Status Date / Time No Known Allergies Allergy Unknown Verified 01/07/25 18:19 Review of Systems Review of Systems: All systems reviewed & are unremarkable except as noted in HPI and below Constitutional: Constitutional: Reports no additional constitutional complaints Eyes: Eyes: Reports no additional eye complaints ENT: Reports system reviewed and no additional complaints, except as documented Cardiovascular: Cardiovascular: Reports no additional cardiovascular complaints Respiratory: Respiratory: Reports no additional respiratory complaints Gastrointestinal: Gastrointestinal: Reports no additional gastrointestinal complaints Genitourinary: Genitourinary: Reports no additional male genitourinary complaints Musculoskeletal: Musculoskeletal: Reports no additional musculoskeletal complaints Integumentary/Breasts: Skin/Breast: Reports system reviewed and no additional complaints, except as docu Neurologic: Reports system reviewed and no additional complaints, except as documented Psychiatric: Psychiatric: Reports no additional psychiatric complaints Endocrine: Endocrine: Reports no additional endocrine complaints Hematologic/Lymphatic: Hematologic/Lymphatic: Reports no additional hematologic/lymphatic complaints Allergic/Immunologic: Allergic/Immunologic: Reports no additional allergic/immunologic complaints [facility] Past Medical History Medical History Chronic venous insufficiency of lower extremity Chronic low back pain without sciatica Prediabetes Atopic dermatitis Vitamin D deficiency History of renal stone 10/15, 04/21 Hip pain, bilateral (~2018) Polymyalgia rheumatica Hearing loss Essential (primary) hypertension Dyslipidemia Osteoarthritis Surgical History Surgical History History of lumbar discectomy History of lumbar fusion (~12/15/21) History of cataract surgery (~03/2019) b/l History of lumbosacral spine surgery (~08/25/22) revision - excision of scar tissue Status post ablation of incompetent vein using laser (~12/2020) Right greater saphenous vein History of right knee surgery (~10/19/18) medial meniscus repair Family History Family History Other Carcinoma of colon Family history of coronary artery disease Hypertension Malignant neoplasm of prostate Social History Social History Smoking status: Never smoker Second hand tobacco smoke exposure: No Alcohol intake: never Substance use: never Substance use type: does not use Lack of Transportation: No Lack of Food: Never True Current Housing: I Have Housing Concerned About Future Housing: No Difficulty Paying Gas/Electric Bills: No Difficulty Paying for Meds: No Currently Unemployed: No Education: Associate Degree Difficulty w/ Childcare or Family Care: No Living arrangements: with family Gender identity (if verbalized by the patient): Male Spiritual care concerns: No Exam Const: General: healthy appearing Nutritional Appearance: well nourished Orientation/consciousness: patient oriented x3 HENMT: Head: normal to inspection Ears: external ears normal Face/Nose/Sinus: Normal external nose present Eyes: Conjunctivae: conjunctivae normal Pupils: Equal, round and reactive pupils present EOM: EOMs intact bilaterally Neck: Neck: normal visual inspection Chest: Chest palpation & inspection: normal inspection of the chest Resp: Effort & Inspection: normal respiratory effort and not labored Auscultation: clear to auscultation bilaterally and no crackles Cardio: Rate: regular rate Rhythm: regular rhythm Heart sounds: no murmurs GI: Inspection: non-distended GI Palp: Yes Soft to palpation, Yes Tenderness to palpation present (GI) (Left lower quadrant and specifically left flank), No Guarding due to palpation present (GI), No Rigid due to palpation, No Hernia present, No Palpable mass present and No Rebound tenderness present Auscultation: normal bowel sounds : General: Yes bladder normal to palpation Back/Spine/Pelvis: Back: no CVA tenderness Skin: General skin exam: normal color Rashes: no rashes Wounds: no wounds Neuro: General: patient oriented x3, moves all extremities and no meningeal signs Cranial nerves: Yes Nystagmus not present Speech: normal speech Gait exam (Neuro): Normal gait present Extrem: General: normal to inspection, no clubbing, cyanosis or edema and no pedal edema Psych: Mental Status: mental status grossly normal Affect: normal affect Attitude: cooperative Course Vital Signs Vital signs: Vital Signs Temperature 37.3 C 01/07/25 18:18 Pulse Rate 89 01/07/25 18:18 Respiratory Rate 18 01/07/25 18:18 Blood Pressure 161/84 H 01/07/25 18:18 Pulse Oximetry 98 01/07/25 18:18 Oxygen Delivery Room Air 01/07/25 18:18 Temperature 37.1 C 01/07/25 21:00 Pulse Rate 111 H 01/07/25 21:00 Respiratory Rate 20 01/07/25 21:00 Blood Pressure 123/63 01/07/25 21:00 Pulse Oximetry 95 01/07/25 21:00 Oxygen Delivery Room Air 01/07/25 18:18 MDM - Abdominal Pain MDM Narrative Medical decision making narrative: Patient is a 69-year-old male with some left flank pain and suprapubic pain for the past day. CT stone workup at this time. Toradol. Lab Data Attestation: I reviewed the patient's lab results. 01/07/25 20:13 01/07/25 20:13 Labs: Lab Results 01/07/25 01/07/25 Range/Units 20:13 20:59 WBC 20.8 H (4.8-10.8) K/mm3 RBC 4.17 L (4.70-6.10) M/mm3 Hgb 13.4 (12.4-15.3) g/dL Hct 40.5 (37.0-46.0) % MCV 97.1 (78.0-102.0) fL MCH 32.1 H (27.0-31.0) pg MCHC 33.1 (32-36) g/dL RDW 13.0 (11.6-14.4) % Plt Count 205 (150-420) K/mm3 MPV 9.5 (8.7-11.0) fl Immature Gran % (Auto) Not Reportable Neut % (Auto) Not Reportable Lymph % (Auto) Not Reportable [place] % (Auto) Not Reportable Eos % (Auto) Not Reportable Baso % (Auto) Not Reportable Lymph # (Auto) Not Reportable [place] # (Auto) Not Reportable Eos # (Auto) Not Reportable Baso # (Auto) Not Reportable Abs Immat Gran (auto) Not Reportable Absolute Neuts (auto) Not Reportable Absolute Nucleated RBC Not Reportable Neutrophils % (Manual) 93 H (46-73) % Band Neutrophils % 0 (0-6) % Lymphocytes % (Manual) 1 L (18-44) % Monocytes % (Manual) 6 (3-9) % Eosinophils % (Manual) 0 L (1-6) % Basophils % (Manual) 0 (0-1) % Nucleated RBC % Not Reportable Abs Neuts (Manual) 19.34 H (1.3-6.7) K/mm3 Abs Lymphs (Manual) 0.20 L (1.1-4.5) K/mm3 Abs Monocytes (Manual) 1.24 H (0.1-0.90) K/mm3 Absolute Eos (Manual) 0.00 L (0.02-0.50) K/mm3 Abs Basophils (Manual) 0.00 (0-0.1) K/mm3 Platelet Estimate Adequate (Adequate) Schistocytes Not Reportable Sodium 136 L (137-145) mmol/L Potassium 3.9 (3.4-5.0) mmol/L Chloride 101 (98-107) mmol/L Carbon Dioxide 23 (22-30) mmol/L Anion Gap 12 (4-12) mmol/L BUN 24 H (9-20) mg/dL Creatinine 1.16 (0.7-1.3) mg/dL Estim Creat Clear Calc 77 ml/min Estimated GFR > 60 (59 - ) Glucose 128 H (65-110) mg/dL Calculated Osmolality 288 (285-295) mOsm/kg Lactic Acid 1.4 (0.4-2.0) mmol/L Calcium 9.3 (8.4-10.2) mg/dL Total Bilirubin 1.1 (0.2-1.3) mg/dL AST 30 (17-59) U/L ALT 27 (6-50) U/L Alkaline Phosphatase 89 (38-126) U/L Total Protein 9.2 H (6.3-8.2) g/dL Albumin 4.2 (3.5-5.1) g/dL Urine Color Light yellow (Yellow) Urine Appearance Clear (Clear) Urine pH 6.0 (5.0-8.0) Ur Specific [place] 1.015 (1.010-1.020) Urine Protein 1+ H (Negative) Urine Glucose (UA) Negative (Negative) Urine Ketones Negative (Negative) Ur Blood (Man) Negative (Negative) Urine Nitrate Negative (Negative) Urine Bilirubin Negative (Negative) Urine Urobilinogen 0.2 (0.2-1.0) mg/dL Leukocyte Esterase Rfl Trace H (Negative) JACKIE/UL Urine RBC 3-5 H (0-2) /hpf Urine WBC 21-30 H (0-3) /hpf Ur Squamous Epith Cells None seen (Few) /hpf Urine Bacteria 1+ H (None) /hpf Urine Mucus Rare /lpf Imaging Data Attestation: I personally reviewed and interpreted this imaging study as follows: Radiologist's impression: ITS Impressions Abdomen/Pelvis CT 01/07/25 20:05 IMPRESSION: Thickening and infiltrative changes of the bladder suggestive of cystitis. Correlation with urinalysis. All CT scans at this facility are performed using low dose modulation techniques as appropriate to perform exam including the following: automated exposure control; use of iterative reconstruction technique; adjustment of the mA and/or kV according to patient size (this includes techniques or standardized protocols for targeted exams where dose is matched to indication/reason for exam). Discharge Plan Discharge Clinical Impression: Acute UTI Patient Disposition: Acute Care Hospital [facility] Condition: Stable Time of Disposition: 22:19
[2025-01-07] MEDS: KETOROLAC (*BKC) 60 MG/2 ML VIAL IM (19:37)
[2025-01-07 20:17] LABS: Add Urine Microscopic? YES; Appearance Urine Clear (Clear); Glucose Urine UA Negative (Negative); Leukocyte Esterase Ur Trace LEU/UL (Negative); Nitrate Urine Negative (Negative); Specific Grav Ur 1.015 (1.010-1.020)
[2025-01-07 20:18] LABS: Hematocrit 40.5 % (37.0-46.0); Hemoglobin 13.4 g/dL (12.4-15.3); Mean Corpuscular HGB Conc 33.1 g/dL (32-36); Mean Corpuscular Hemoglobin 32.1 pg (27.0-31.0); Mean Corpuscular Volume 97.1 fL (78.0-102.0); Platelet Count Result 205 K/mm3 (150-420); Red Blood Count 4.17 M/mm3 (4.70-6.10); White Blood Count 20.8 K/mm3 (4.8-10.8)
[2025-01-07 20:28] LABS: Alanine Aminotransferase 27 U/L (6-50); Albumin Level 4.2 g/dL (3.5-5.1); Alkaline Phosphatase 89 U/L (38-126); Anion Gap 12 mmol/L (4-12); Aspartate Amino Transferase 30 U/L (17-59); Bilirubin,Total 1.1 mg/dL (0.2-1.3); Blood Urea Nitrogen 24 mg/dL (9-20); Calcium 9.3 mg/dL (8.4-10.2); Carbon Dioxide 23 mmol/L (22-30); Chloride 101 mmol/L (98-107); Estimated CRCL calculation 77 ml/min; Estimated Glomerular Filt Rate > 60; Glucose 128 mg/dL (65-110); Osmolality Calculated 288 mOsm/kg (285-295); Potassium 3.9 mmol/L (3.4-5.0); Sodium 136 mmol/L (137-145); Total Protein 9.2 g/dL (6.3-8.2)
[2025-01-07 20:55] LABS: Band Neutrophils Percent 0 % (0-6); Basophils Absolute Manual 0.00 K/mm3 (0-0.1); Basophils Percent Manual 0 % (0-1); Eosinophils Absolute Manual 0.00 K/mm3 (0.02-0.50); Eosinophils Percent Manual 0 % (1-6); Lymphocytes Absolute Manual 0.20 K/mm3 (1.1-4.5); Lymphocytes Percent Manual 1 % (18-44); Monocytes Absolute Manual 1.24 K/mm3 (0.1-0.90); Monocytes Percent Manual 6 % (3-9); Neutrophils Absolute Manual 19.34 K/mm3 (1.3-6.7); Neutrophils Percent Manual 93 % (46-73)
[2025-01-07 21:00] VITALS: BP 123/63; PULSE 111; RESP 20; TEMP 37.1; O2SAT 95
--- NOTE | 2025-01-07 21:05 | PC.NURSE ---
POC for admission discussed w/ pt by Dr Sethi. Pt agreeable to POC, orders obtained for IV antibiotics.
[2025-01-07] MEDS: CEFEPIME 2 GM in SODIUM CHLORIDE 0.9% IV 50 ML 100 ML IVPB (21:15)
--- NOTE | 2025-01-07 22:04 | PC.NURSE ---
Report called to Kamari Canas. Pt will go to Rm [id number].
[2025-01-07 22:14] VITALS: BMI 35.4
[2025-01-07 22:19] VITALS: BP 133/74; PULSE 110; RESP 20; TEMP 37.2; O2SAT 96
--- NOTE | 2025-01-07 22:30 | ADMGEN ---
This patient, Ry Barbour, was admitted to 2nd Floor Room 203-1. Patient/family oriented to hospital policies and general routines including ID bracelet, bed and alarms, visiting hours, pain management, procedures, bathroom and other care routines, personal items, smoking policy, room service/diet, and visiting hours. Information on how to activate the Rapid Response Team has been discussed. Patient/Family are encouraged to report perceived risks to care and to ask questions if they do not understand what they are told or what they should do.
[2025-01-07] MEDS: SODIUM CHLORIDE 0.9% IV 1,000 ML 100 ML IV CONT (22:46)
[2025-01-07] MEDS: ZOLPIDEM TARTRATE (*CRX) 5 MG TABLET PO (23:05)
[2025-01-07 23:23] VITALS: PULSE 110; RESP 20; O2SAT 96
[2025-01-08] VITALS: BP 139/77; PULSE 97; RESP 18; TEMP 37.2; O2SAT 96
[2025-01-08] MEDS: PHENAZOPYRIDINE HCL 100 MG TABLET 200 MG PO ×2 (05:15→17:26)
[2025-01-08 05:31] LABS: Hematocrit 40.7 % (37.0-46.0); Hemoglobin 13.4 g/dL (12.4-15.3); Immature Granulocyte Percent A 1.4 % (0.0-0.0); Lymphocytes Absolute Auto 0.54 K/mm3 (1.10-4.50); Mean Corpuscular HGB Conc 32.9 g/dL (32-36); Mean Corpuscular Hemoglobin 32.4 pg (27.0-31.0); Mean Corpuscular Volume 98.3 fL (78.0-102.0); Nucleated Red Blood Cells Absolute Auto 0.00 K/mm3 (0.00-0.00); Nucleated Red Blood Cells Perc 0.0 % (0-0.0); Platelet Count Result 199 K/mm3 (150-420); Red Blood Count 4.14 M/mm3 (4.70-6.10); White Blood Count 17.0 K/mm3 (4.8-10.8)
[2025-01-08 05:44] LABS: Alanine Aminotransferase 28 U/L (6-50); Albumin Level 4.2 g/dL (3.5-5.1); Alkaline Phosphatase 87 U/L (38-126); Anion Gap 14 mmol/L (4-12); Aspartate Amino Transferase 29 U/L (17-59); Bilirubin,Total 1.2 mg/dL (0.2-1.3); Blood Urea Nitrogen 26 mg/dL (9-20); Calcium 9.2 mg/dL (8.4-10.2); Carbon Dioxide 23 mmol/L (22-30); Chloride 102 mmol/L (98-107); Estimated CRCL calculation 63 ml/min; Estimated Glomerular Filt Rate 50; Glucose 134 mg/dL (65-110); Osmolality Calculated 294 mOsm/kg (285-295); Potassium 3.9 mmol/L (3.4-5.0); Sodium 139 mmol/L (137-145); Total Protein 9.4 g/dL (6.3-8.2)
[2025-01-08 07:45] VITALS: BP 136/77; PULSE 108; RESP 16; TEMP 37.6; O2SAT 92
[2025-01-08 08:30] VITALS: PULSE 108; RESP 16; O2SAT 92
[2025-01-08] MEDS: CEFEPIME 2 GM in SODIUM CHLORIDE 0.9% IV 50 ML 100 ML IVPB ×2 (08:41→21:40)
[2025-01-08] MEDS: ENOXAPARIN 40 MG/0.4 ML SYRINGE SUB-Q (08:43)
[2025-01-08] MEDS: SODIUM CHLORIDE 0.9% IV 1,000 ML 100 ML IV CONT ×2 (09:40→19:26)
[2025-01-08] MEDS: THERAPEUTIC MULTIVITAMINS/MINERALS TAB (*BKC) 1 TABLET PO (09:40)
[2025-01-08 09:41] VITALS: PULSE 108
[2025-01-08] MEDS: CHOLECALCIFEROL (VITAMIN D3) 25 MCG (1,000 UNITS) TABLET 50 MCG PO (09:41)
[2025-01-08] MEDS: METOPROLOL SUCCINATE EXT REL 50 MG TABCR PO (09:41)
--- NOTE | 2025-01-08 10:24 | P.HP_ITS ---
H&P: HPI History of Present Illness Date/Time: 01/08/25 10:24 Chief Complaint: Left flank pain Narrative: Patient is a 61-year-old male who presented to the emergency department with complaints left flank pain. Patient reports he does have a history of kidney stones, chronic back pain, HTN, and HLD. patient reported symptoms began last prior to arrival at which time he thought he either had a small stone or was having intermittent back spasms. pain continued to be intermittent however prior to arrival added become continuous was concerned for kidney stone. patient did report chills but unaware if he had any fevers. Patient denied chest pain, shortness a breath, nausea, vomiting reports pain sharp aching. patient states prior to arrival history have been difficulty with urination and burning sensation. In the ED: patient was found to have leukocytosis at 20 and UA suspicious for urinary tract infection and CT abdomen pelvis showed thickening in infiltrative changes of the bladder suggestive of cystitis. patient was started on IV cefepime and IV fluids and given a dose of Toradol. patient was admitted to the medical unit for further evaluation and treatment on follow-up assessment patient still reporting intermittent pain to left flank however dysuria had improved. patient noted to have mild DAWSON creatinine to 1.45 however leukocytosis improving to 17. will continue with IV antibiotics pending urine culture for deescalation. Review of Systems Review of Systems: All systems reviewed & are unremarkable except as noted in HPI and below PMFSH Past Medical History Medical History Chronic venous insufficiency of lower extremity Chronic low back pain without sciatica Prediabetes Atopic dermatitis Vitamin D deficiency History of renal stone 10/15, 04/21 Hip pain, bilateral (~2018) Polymyalgia rheumatica Hearing loss Essential (primary) hypertension Dyslipidemia Osteoarthritis Surgical History Surgical History History of lumbar discectomy History of lumbar fusion (~12/15/21) History of cataract surgery (~03/2019) b/l History of lumbosacral spine surgery (~08/25/22) revision - excision of scar tissue Status post ablation of incompetent vein using laser (~12/2020) Right greater saphenous vein History of right knee surgery (~10/19/18) medial meniscus repair Family History Family History Other Carcinoma of colon Family history of coronary artery disease Hypertension Malignant neoplasm of prostate Social History Social History Smoking status: Never smoker Second hand tobacco smoke exposure: No Alcohol intake: never Substance use: never Substance use type: does not use Lack of Transportation: No Lack of Food: Never True Current Housing: I Have Housing Concerned About Future Housing: No Difficulty Paying Gas/Electric Bills: No Difficulty Paying for Meds: No Currently Unemployed: No Education: Bachelor's Degree Difficulty w/ Childcare or Family Care: No Living arrangements: with family Gender identity (if verbalized by the patient): Male Spiritual care concerns: No Meds Home Medications and Allergies Home Medications ?Medication ?Instructions ?Recorded ?Confirmed ?Type [id number] acid-vit 1 tablet PO DAILY 07/1401/07/25 History K-lycop 400 mcg-20 mcg-370 mcg tablet (One-A-Day Men's 50 Plus (with vitamin K)) cholecalciferol (vitamin D3) 50 50 mcg PO DAILY 01/07/25 History mcg (2,000 unit) capsule doxepin 10 mg capsule 10 mg PO QHS 12/27/23 History triamcinolone acetonide 0.1 % 1 applic topical .every 2 weeks 12/27/23 01/07/25 History topical cream acetaminophen 500 mg tablet 1,000 mg PO DAILY 06/28/24 01/07/25 History (Tylenol Extra Strength) duloxetine 60 mg capsule,delayed 60 mg PO BID #180 cap s 07/26/24 01/07/25 Rx release (Cymbalta) lisinopril 20 1 tablet PO DAILY #90 tabs 0 09/18/24 01/07/25 Rx mg-hydrochlorothiazide 12.5 mg tablet amlodipine 5 mg tablet 5 mg PO DAILY #90 tabs 09/1901/07/25 Rx metoprolol succinate 50 mg 50 mg PO DAILY #90 tabs 06/1901/07/25 Rx tablet,extended release 24 hr abrocitinib 100 mg tablet (Cibinqo) 100 mg PO DAILY ec zema 01/07/25 01/07/25 History Allergies Allergy/AdvReac Type Severity Reaction Status Date / Time No Known Allergies Allergy Unknown Verified 01/07/25 22:38 Vital Signs Vital Signs - 24 hr 01/07/25 18:18 01/07/25 21:00 01/07/25 22:19 Temperature 99.2 F 98.8 F 99 F Pulse Rate 89 111 H 110 H Respiratory Rate 18 20 20 Blood Pressure 161/84 H 123/63 133/74 Pulse Oximetry 98 95 96 Oxygen Delivery Room Air Room Air 01/07/25 23:23 01/08/25 00:00 01/08/25 07:45 Temperature 98.9 F 99.7 F H Pulse Rate 110 H 97 108 H Respiratory Rate 20 18 16 Blood Pressure 139/77 136/77 Pulse Oximetry 96 96 92 Oxygen Delivery Room Air Room Air Room Air 01/08/25 09:41 Temperature Pulse Rate 108 H Respiratory Rate Blood Pressure Pulse Oximetry Oxygen Delivery Exam Const: General: no acute distress and uncomfortable Other: Left flank pain HENMT: Mouth: Yes moist mucous membranes Eyes: General: appearance normal, both eyes and all related structures Sclera: sclerae normal Pupils: Equal, round and reactive pupils present Neck: Neck: supple and no JVD Resp: Effort & Inspection: normal respiratory effort Auscultation: clear to auscultation bilaterally Cardio: Rate: regular rate Rhythm: regular rhythm GI: GI Palp: Yes Soft to palpation Auscultation: normal bowel sounds : General: Yes bladder normal to palpation Urinary Catheter: Urinary Catheter: urine clear Skin: General skin exam: normal color and no rashes or lesions noted Wounds: no wounds Neuro: General: gait normal Speech: normal speech Motor exam (neuro): 5/5 motor strength present throughout Sensory Exam: normal sensation Extrem: General: normal to inspection Psych: Mental Status: mental status grossly normal Affect: normal affect H&P: Results Labs Labs: Short CBC 01/07/25 01/08/25 Range/Units 20:13 05:18 WBC 20.8 H 17.0 H (4.8-10.8) K/mm3 Hgb 13.4 13.4 (12.4-15.3) g/dL Hct 40.5 40.7 (37.0-46.0) % Plt Count 205 199 (150-420) K/mm3 BMP 01/07/25 01/08/25 20:13 05:18 Sodium 136 L 139 Potassium 3.9 3.9 Chloride 101 102 Carbon Dioxide 23 23 BUN 24 H 26 H Creatinine 1.16 1.42 H Glucose 128 H 134 H Calcium 9.3 9.2 Liver Function 01/07/25 01/08/25 Range/Units 20:13 05:18 Total Bilirubin 1.1 1.2 (0.2-1.3) mg/dL AST 30 29 (17-59) U/L ALT 27 28 (6-50) U/L Alkaline Phosphatase 89 87 (38-126) U/L Albumin 4.2 4.2 (3.5-5.1) g/dL Urine 01/07/25 Range/Units 20:13 Urine Color Light yellow (Yellow) Urine Appearance Clear (Clear) Urine pH 6.0 (5.0-8.0) Ur Specific [place] 1.015 (1.010-1.020) Urine Protein 1+ H (Negative) Urine Glucose (UA) Negative (Negative) Imaging CT scan - abdomen: Radiologist's impression: CT abdomen pelvis wo con INDICATION:left flank pain/ pain while urinating . COMPARISON: None. TECHNIQUE: Axial 2.5 mm images of the abdomen were obtained without IV or oral contrast. Diagnostic sensitivity is limited due to lack of IV contrast. FINDINGS: The lung bases are clear. The liver parenchyma is unremarkable. No intrahepatic mass or ductal dilatation is evident. The gallbladder is unremarkable. The pancreas and spleen are normal in appearance. The adrenal glands are symmetric in size. The kidneys are unremarkable. No intrarenal stones are noted. There is no hydronephrosis. Evaluation of the stomach and bowel loops are limited due to lack of oral contrast. The appendix is normal in appearance. There is colonic diverticulosis without evidence of acute diverticulitis. Thickening of the bladder wall with adjacent stranding suggestive of cystitis. No free intraperitoneal fluid or air is evident. There is no significant retroperitoneal lymphadenopathy. The aorta, visceral vessels and renal arteries demonstrate normal caliber. The lower thoracic and lumbar vertebrae are in normal alignment. IMPRESSION: Thickening and infiltrative changes of the bladder suggestive of cystitis. Correlation with urinalysis. Assessment and Plan Assessment and plan (1) Cystitis: Code(s): N30.90 - Cystitis, unspecified without hematuria Status: Acute Assessment and Plan: UA suspicious for urinary tract infection and CT abdomen showing cystitis potentially patient had recent stone passed on own presents with UTI * IV cefepime pending culture no previous UA * IV fluids * antipyretics * encourage oral hydration * IV Toradol for inflammation * Dilaudid for severe pain * blood cultures pending (2) Essential (primary) hypertension: Code(s): I10 - Essential (primary) hypertension Status: Acute Assessment and Plan: * continued patient's amlodipine and metoprolol * monitor BP per unit protocol * holding patient's lisinopril /hydrochlorothiazide (3) DAWSON (acute kidney injury): Code(s): N17.9 - Acute kidney failure, unspecified Status: Acute Assessment and Plan: patient with mild DAWSON creatinine 1.45 * IV fluids * trend renal function * avoid nephrotoxins Plan Code status: Full code per patient DVT prophylaxis: SCDs Stress ulcer prophylaxis: N/a PT/OT notes: ambulatory Disposition: patient will continue admission to the medical unit for pain management in IV antibiotic therapy he pending UA culture. patient is ambulatory and plan will be to return home at discharge. Quality VTE Prophylaxis VTE prophylaxis: mechanical ordered -Patient's previous records reviewed on admission -ER notes reviewed in detail on admission -discussed all findings and current treatment plan with patient/Family/POA -Consultations reviewed for recommendations -Patient's disposition for safe discharge discussed with case technician -radiology imaging, EKG and test results I have personally reviewed and interpreted unless otherwise specified Dictation performed by [employer] direct speech recognition software, therefore ventilating equipment installer variants and typographical errors may occur. Hospitalist MIPS Advance Care Plan I have confirmed that the patient's Advanced Care Plan is present, code status is documented, or surrogate decision maker is listed in patient medical record.: Yes Medication Reconciliation I have utilized all available resources to obtain, update and review the patients current medications (includes all prescriptions, OTC, herbals, cannabis, and nutritional supplements).: Yes The patient is not eligible for med reconciliation; the patient is in a emergent medical situation where delaying treatment would jeopardize the patients health.: No
[2025-01-08 16:30] VITALS: BP 161/75; PULSE 99; RESP 16; TEMP 36.8; O2SAT 96
[2025-01-08] MEDS: DOXEPIN HCL 10 MG CAPSULE PO (20:43)
--- NOTE | 2025-01-08 20:44 | PC.NURSE ---
Home med Doxepin will not scan, given as ordered.
[2025-01-09] VITALS: BP 142/85; PULSE 90; RESP 20; TEMP 36.6; O2SAT 95
[2025-01-09] MEDS: SODIUM CHLORIDE 0.9% IV 1,000 ML 100 ML IV CONT (03:06)
[2025-01-09 05:32] LABS: Hematocrit 36.3 % (37.0-46.0); Hemoglobin 11.8 g/dL (12.4-15.3); Mean Corpuscular HGB Conc 32.5 g/dL (32-36); Mean Corpuscular Hemoglobin 32.2 pg (27.0-31.0); Mean Corpuscular Volume 98.9 fL (78.0-102.0); Platelet Count Result 154 K/mm3 (150-420); Red Blood Count 3.67 M/mm3 (4.70-6.10); White Blood Count 10.1 K/mm3 (4.8-10.8)
[2025-01-09 05:50] LABS: Alanine Aminotransferase 45 U/L (6-50); Albumin Level 3.3 g/dL (3.5-5.1); Alkaline Phosphatase 84 U/L (38-126); Anion Gap 8 mmol/L (4-12); Aspartate Amino Transferase 45 U/L (17-59); Bilirubin,Total 0.7 mg/dL (0.2-1.3); Blood Urea Nitrogen 15 mg/dL (9-20); Calcium 8.5 mg/dL (8.4-10.2); Carbon Dioxide 24 mmol/L (22-30); Chloride 108 mmol/L (98-107); Estimated CRCL calculation 96 ml/min; Estimated Glomerular Filt Rate > 60; Glucose 118 mg/dL (65-110); Magnesium 2.2 mg/dL (1.6-2.3); Osmolality Calculated 291 mOsm/kg (285-295); Potassium 4.1 mmol/L (3.4-5.0); Sodium 140 mmol/L (137-145); Total Protein 6.3 g/dL (6.3-8.2)
[2025-01-09 08:00] VITALS: BP 132/83; PULSE 81; RESP 18; TEMP 36.6; O2SAT 92
--- NOTE | 2025-01-09 08:14 | P.PNIM_ITS ---
Progress Note: A&P Assessment and Plan (1) Cystitis: Code(s): N30.90 - Cystitis, unspecified without hematuria Status: Acute Assessment and Plan: UA suspicious for urinary tract infection and CT abdomen showing cystitis potentially patient had recent stone passed on own presents with UTI * IV cefepime pending culture no previous UA * IV fluids * antipyretics * encourage oral hydration * IV Toradol for inflammation * Dilaudid for severe pain * blood cultures pending (2) Essential (primary) hypertension: Code(s): I10 - Essential (primary) hypertension Status: Acute Assessment and Plan: * continued patient's amlodipine and metoprolol * monitor BP per unit protocol * holding patient's lisinopril /hydrochlorothiazide (3) DAWSON (acute kidney injury): Code(s): N17.9 - Acute kidney failure, unspecified Status: Acute Assessment and Plan: patient with mild DAWSON creatinine 1.45 * IV fluids * trend renal function * avoid nephrotoxins Plan Code status: Full code per patient DVT prophylaxis: SCDs Stress ulcer prophylaxis: N/a PT/OT notes: ambulatory Disposition: patient will continue admission to the medical unit for pain management in IV antibiotic therapy he pending UA culture. patient is ambulatory and plan will be to return home at discharge. Subjective Date/time seen: 01/09/25 08:14 Review of Systems Review of Systems: All systems reviewed & are unremarkable except as noted in HPI and below Exam Const: General: no acute distress and uncomfortable Other: Left flank pain HENMT: Mouth: Yes moist mucous membranes Eyes: General: appearance normal, both eyes and all related structures Sclera: sclerae normal Pupils: Equal, round and reactive pupils present Neck: Neck: supple and no JVD Resp: Effort & Inspection: normal respiratory effort Auscultation: clear to auscultation bilaterally Cardio: Rate: regular rate Rhythm: regular rhythm GI: Auscultation: normal bowel sounds : General: Yes bladder normal to palpation Urinary Catheter: Urinary Catheter: urine clear Skin: General skin exam: normal color and no rashes or lesions noted Wounds: no wounds Neuro: General: gait normal Cranial nerves: Yes Equal, round and reactive pupils present Speech: normal speech Motor exam (neuro): 5/5 motor strength present throughout Sensory Exam: normal sensation Extrem: General: normal to inspection Psych: Mental Status: mental status grossly normal Affect: normal affect Objective Data Vital Signs Vital Signs: Vital Signs - 24 hr 01/08/25 08:30 01/08/25 09:41 01/08/25 16:30 Temperature 98.2 F Pulse Rate 108 H 108 H 99 Respiratory Rate 16 16 Blood Pressure 161/75 H Pulse Oximetry 92 96 Oxygen Delivery Room Air Room Air 01/09/25 00:00 Temperature 97.8 F Pulse Rate 90 Respiratory Rate 20 Blood Pressure 142/85 H Pulse Oximetry 95 Oxygen Delivery Room Air Intake/Output Intake/Output: Intake & Output 01/06/25 01/07/25 01/08/25 01/09/25 23:59 23:59 23:59 23:59 Intake Total 50 4126.7 1066.7 Output Total 475 Balance 50 4126.7 591.7 Meds/Results Medications: Active Medications Generic Name Dose Route Start Last Admin Trade Name Freq PRN Reason Stop Dose Admin Acetaminophen 650 mg 01/07/25 21:52 Acetaminophen 325 Mg Tablet PO Q4H PRN Mild Pain (1-3) or Fever Amlodipine Besylate 5 mg 01/08/25 09:00 01/08/25 09:41 Amlodipine Besylate 5 Mg Tablet PO 5 mg DAILY DAKSHA Administration Doxepin HCl 10 mg 01/08/25 21:00 01/08/25 20:43 Doxepin Hcl 10 Mg Capsule PO 10 mg HS DAKSHA Administration Duloxetine HCl 60 mg 01/08/25 21:00 01/08/25 20:42 Duloxetine Hcl 30 Mg Capsule.Dr PO 60 mg Q12HR DAKSHA Administration Enoxaparin Sodium 40 mg 01/08/25 09:00 01/08/25 08:43 Enoxaparin 40 Mg/0.4 Ml Syringe SUB-Q 40 mg DAILY DAKSHA Administration Sodium Chloride 1,000 mls @ 100 mls/hr 01/07/25 21:55 01/09/25 03:06 Normal Saline Iv IV CONT 100 mls/hr .Q10H DAKSHA Administration Cefepime HCl 2 gm/ Sodium 50 mls @ 100 mls/hr 01/08/25 09:00 01/08/25 22:10 Chloride IVPB Infused Q12H DAKSHA Infusion Ketorolac Tromethamine 30 mg 01/08/25 08:53 Ketorolac 30 Mg/Ml Vial (*Bkc) IV PUSH Q6H PRN Pain Rated 4-6 Metoprolol Succinate 50 mg 01/08/25 09:00 01/08/25 09:41 Metoprolol Succinate Ext Rel 50 Mg Tabcr PO 50 mg DAILY DAKSHA Administration Miscellaneous Information 1 each 01/08/25 00:01 Order Clarification ((Abrocitinib [Cibinqo] 100 Mg Tablet Is Non-Formulary; Can Pt Supply? XX 02/07/25 00:00 CLARIFY DAKSHA Miscellaneous Information 1 each 01/09/25 00:01 Doxepin 10 Mg Is Nonform; Can Pt Use From Home? XX 02/08/25 00:00 CLARIFY DAKSHA Multivitamins/Calcium 1 tablet 01/08/25 09:00 01/08/25 09:40 Therapeutic Multivitamins/Minerals Tab (*Bkc) PO 1 tablet DAILY DAKSHA Administration Non-Formulary Medication 100 mg 01/08/25 09:00 Abrocitinib [Cibinqo] PO 02/07/25 08:59 DAILY DAKSHA Phenazopyridine HCl 200 mg 01/07/25 22:19 01/08/25 17:26 Phenazopyridine Hcl 100 Mg Tablet PO 200 mg TID PRN Administration Dysuria Triamcinolone Acetonide 1 applic 01/08/25 08:55 Triamcinolone Acet 0.1% Cream 15 Gm Tube TOPICAL BID PRN Rash Vitamin D 50 mcg 01/08/25 09:00 01/08/25 09:41 Cholecalciferol (Vitamin D3) 25 Mcg (1,000 Units) Tablet PO 50 mcg DAILY DAKSHA Administration Zolpidem Tartrate 5 mg 01/07/25 22:53 01/07/25 23:05 Zolpidem Tartrate (*Crx) 5 Mg Tablet PO 5 mg HS PRN Administration Insomnia Radiology Results: ITS Impressions Abdomen/Pelvis CT 01/07/25 20:05 IMPRESSION: Thickening and infiltrative changes of the bladder suggestive of cystitis. Correlation with urinalysis. All CT scans at this facility are performed using low dose modulation techniques as appropriate to perform exam including the following: automated exposure control; use of iterative reconstruction technique; adjustment of the mA and/or kV according to patient size (this includes techniques or standardized protocols for targeted exams where dose is matched to indication/reason for exam). Labs Labs: Laboratory Results - last 24 hr 01/09/25 05:25 WBC 10.1 RBC 3.67 L Hgb 11.8 L Hct 36.3 L MCV 98.9 MCH 32.2 H MCHC 32.5 RDW 13.3 Plt Count 154 MPV 9.5 Sodium 140 Potassium 4.1 Chloride 108 H Carbon Dioxide 24 Anion Gap 8 BUN 15 D Creatinine 0.91 Estim Creat Clear Calc 96 Estimated GFR > 60 Glucose 118 H Calculated Osmolality 291 Calcium 8.5 Magnesium 2.2 Total Bilirubin 0.7 AST 45 ALT 45 Alkaline Phosphatase 84 Total Protein 6.3 Albumin 3.3 L Quality VTE Prophylaxis VTE prophylaxis: mechanical ordered
[2025-01-09] MEDS: CEFEPIME 2 GM in SODIUM CHLORIDE 0.9% IV 50 ML 100 ML IVPB (08:22)
[2025-01-09] MEDS: ENOXAPARIN 40 MG/0.4 ML SYRINGE SUB-Q (08:23)
[2025-01-09] MEDS: CHOLECALCIFEROL (VITAMIN D3) 25 MCG (1,000 UNITS) TABLET 50 MCG PO (08:23)
[2025-01-09 08:24] VITALS: PULSE 81
[2025-01-09] MEDS: THERAPEUTIC MULTIVITAMINS/MINERALS TAB (*BKC) 1 TABLET PO (08:24)
[2025-01-09] MEDS: METOPROLOL SUCCINATE EXT REL 50 MG TABCR PO (08:24)
[2025-01-09] MEDS: [UNRECOGNIZED DRUG - OTHER] 100 EACH PO (08:40)
--- NOTE | 2025-01-09 11:02 | P.DS_ITS ---
DS: Admitting Diagnosis Discharge Date 01/09/2025 Admitting Diagnosis acute cystitis DS: Discharge Diagnosis Discharge Diagnosis (1) Cystitis: Code(s): N30.90 - Cystitis, unspecified without hematuria Status: Acute Assessment and Plan: UA suspicious for urinary tract infection and CT abdomen showing cystitis potentially patient had recent stone passed on own presents with UTI * IV cefepime * IV fluids * antipyretics * encourage oral hydration * IV Toradol for inflammation * Dilaudid for severe pain * blood cultures pending * patients flank pain has improved, wbc count improved, discharge home with PO Cefdinir x 5 days, f/u cultures after discharge (2) Essential (primary) hypertension: Code(s): I10 - Essential (primary) hypertension Status: Acute Assessment and Plan: * continued patient's amlodipine and metoprolol * monitor BP per unit protocol * holding patient's lisinopril /hydrochlorothiazide, restart on discharge (3) DAWSON (acute kidney injury): Code(s): N17.9 - Acute kidney failure, unspecified Status: Acute Assessment and Plan: patient with mild DAWSON creatinine 1.45 * IV fluids * trend renal function * avoid nephrotoxins * creatinine 0.91 today * resolved DS: Summary Hospital Course Reason for hospitalization: left flank pain Hospital Course: Patient is a 61 year old male with PMH of kidney stones, chronic back pain, HTN and HLD. Patient presented to the ER with complaints of left flank pain. Patient also endorsed difficulty with urination and dysuria. In the ED the patient was found to have a white blood cell count of 20k and his UA was suspicious for acute cystitis. CT abdomen and pelvis showed thickening and infiltrative changes of the bladder suggestive of cystitis. Patient was treated with IV cefepime and IV fluids. on 01/08 patients BUN was 26, creatinine 1.42 which was treated with IV fluids. Today's labs showed improvement with a BUN of 15 and creatinine of 0.91. Patient's white blood cell count is normal today at 10.1k. Patient reports his left flank pain has resolved. Patient urine and blood cultures are still pending. Patient will discharge home today on PO Cefdinir 300 mg x 5 days. Urine and blood cultures will be followed after discharge and course of treatment changed if needed. Patient agreeable with plan. Patient advised to follow up with his PCP within 1-2 weeks of discharge. Time Spent with Patient Time attestation: Total time spent providing and/or coordinating discharge services: 25 minutes Exam Const: General: comfortable and no acute distress HENMT: Face/Nose/Sinus: Normal nares present Mouth: Yes moist mucous membranes Eyes: General: appearance normal, both eyes and all related structures Sclera: sclerae normal Neck: Neck: supple Resp: Effort & Inspection: normal respiratory effort Auscultation: clear to auscultation bilaterally Cardio: Rate: regular rate Rhythm: regular rhythm GI: GI Palp: Yes Soft to palpation Auscultation: normal bowel sounds Skin: General skin exam: normal color and no rashes or lesions noted Neuro: General: gait normal Motor exam (neuro): 5/5 motor strength present throughout Sensory Exam: normal sensation Extrem: General: normal to inspection Psych: Mental Status: mental status grossly normal Affect: normal affect DS: Data Data Completed and Pending Labs on day of discharge: Labs from last 24 hours 01/09/25 05:25 WBC 10.1 RBC 3.67 L Hgb 11.8 L Hct 36.3 L MCV 98.9 MCH 32.2 H MCHC 32.5 RDW 13.3 Plt Count 154 MPV 9.5 Sodium 140 Potassium 4.1 Chloride 108 H Carbon Dioxide 24 Anion Gap 8 BUN 15 D Creatinine 0.91 Estim Creat Clear Calc 96 Estimated GFR > 60 Glucose 118 H Calculated Osmolality 291 Calcium 8.5 Magnesium 2.2 Total Bilirubin 0.7 AST 45 ALT 45 Alkaline Phosphatase 84 Total Protein 6.3 Albumin 3.3 L Imaging Radiologist's impression: Ordering Physician: Feliciano Sethi MD Date of Service: 01/07/25 Procedure(s): CT abdomen pelvis wo con Accession Number(s): [id number] cc: Nikko Bhardwaj MD; Feliciano Sethi MD~ CT abdomen pelvis wo con INDICATION:left flank pain/ pain while urinating . COMPARISON: None. TECHNIQUE: Axial 2.5 mm images of the abdomen were obtained without IV or oral contrast. Diagnostic sensitivity is limited due to lack of IV contrast. FINDINGS: The lung bases are clear. The liver parenchyma is unremarkable. No intrahepatic mass or ductal dilatation is evident. The gallbladder is unremarkable. The pancreas and spleen are normal in appearance. The adrenal glands are symmetric in size. The kidneys are unremarkable. No intrarenal stones are noted. There is no hydronephrosis. Evaluation of the stomach and bowel loops are limited due to lack of oral contrast. The appendix is normal in appearance. There is colonic diverticulosis without evidence of acute diverticulitis. Thickening of the bladder wall with adjacent stranding suggestive of cystitis. No free intraperitoneal fluid or air is evident. There is no significant retroperitoneal lymphadenopathy. The aorta, visceral vessels and renal arteries demonstrate normal caliber. The lower thoracic and lumbar vertebrae are in normal alignment. IMPRESSION: Thickening and infiltrative changes of the bladder suggestive of cystitis. Correlation with urinalysis. Discharge Plan Discharge Attending physician on discharge: Douglas Rashid Consulting providers: Munira Sargent Discharging Clinician: Meliza Anderson Patient Disposition: Home Activity: as tolerated Diet: heart healthy Patient Instructions: Antibiotic Form, Cefdinir (By mouth), Urinary Tract Infection in Men (DC), Fall Prevention for Older Adults (DC) Patient Language: Honduran Stand Alone Forms: General Discharge Information Follow-up/Referrals: Darby Bhardwaj MD [Primary Care Provider, Family Practice] Referral Note: Call for an appointment to be seen within 1-2 weeks of discharge. Please complete all antibiotics even if your symptoms subside. Discharge Medications: New cefdinir 300 mg capsule 300 mg PO Q12H Qty: 10 0RF Continued Cibinqo 100 mg tablet 100 mg PO DAILY One-A-Day Men's 50 Plus(vit K) 400-20-370 mcg tablet 1 tablet PO DAILY cholecalciferol (vitamin D3) 50 mcg (2,000 unit) capsule 50 mcg PO DAILY acetaminophen [Tylenol Extra Strength] 500 mg tablet 1,000 mg PO DAILY doxepin 10 mg capsule 10 mg PO QHS triamcinolone acetonide 0.1 % cream 1 applic topical .every 2 weeks duloxetine [Cymbalta] 60 mg capsule,delayed release(DR/EC) 60 mg PO BID Qty: 180 1RF lisinopril-hydrochlorothiazide 20-12.5 mg tablet 1 tablet PO DAILY Qty: 90 1RF amlodipine 5 mg tablet 5 mg PO DAILY Qty: 90 1RF metoprolol succinate 50 mg tablet extended release 24 hr 50 mg PO DAILY Qty: 90 1RF Date of admission: 01/07/25 21:52 Primary Care Provider: Darby Bhardwaj Admitting Provider: Douglas Rashid Attending physician on admission: Douglas Rashid Condition: Stable Quality VTE Prophylaxis VTE prophylaxis: mechanical ordered
--- NOTE | 2025-01-09 12:51 | PC.NURSE ---
Dc to personal vehicle with via WC. vss, removed iv intact. Dc paperwork given to pt, v/u of instructions. belonings taken with pt including phone and wreath machine operator, and home meds.
--- NOTE | 2025-01-16 10:25 | PC.NURSE ---
Discharge call back, no answer
--- NOTE | 2025-01-16 10:36 | PC.NURSE ---
Patient returned call for call back, doing well, saw PMD today and having repeat urinalysis to make sure abx worked, no questions regarding dc instructions or medications
== END 2025-01-09 12:05 | disposition home or self-care (01) ==
LOC: CHSED 18:57 → CHS2ND 22:05
PROVIDERS: Nurse Practitioner Family; Admitting Provider Internal Medicine; Emergency Provider Emergency Medicine; PCP Family Medicine; Visit Provider Nurse Practitioner Adult Health
DX: N30.90 Cystitis, unspecified without hematuria (principal); N17.9 Acute kidney failure, unspecified; I10 Essential (primary) hypertension; E78.5 Hyperlipidemia, unspecified; F41.8 Other specified anxiety disorders; E55.9 Vitamin D deficiency, unspecified; M54.50 Low back pain, unspecified; G89.29 Other chronic pain; R73.03 Prediabetes; Z87.442 Personal history of urinary calculi; Z98.1 Arthrodesis status; Z80.0 Family history of malignant neoplasm of digestive organs; Z80.42 Family history of malignant neoplasm of prostate
CPT/HCPCS: 36415; 74176; 80053; 81001; 83605; 83735; 85025; 85027; 87040; 87086; 96365; 96366; 96367; 96372; 99285; A9270; G0378; J0692; J1650; J1885; J7030

== ENCOUNTER 2025-01-16 09:33 | Outpatient (CLI) | payer MEDICARE, SELFPAY ==
[2025-01-16 15:10] LABS: Hematocrit 44.1 % (42.0-52.0); Hemoglobin 14.0 g/dL (14.0-18.0); Immature Granulocyte Percent A 4.4 % (0-0.5); Lymphocytes Absolute Auto 1.84 K/mm3 (0.9-3.2); Mean Corpuscular HGB Conc 31.7 g/dl (32-36); Mean Corpuscular Hemoglobin 32.0 pg (26-34); Mean Corpuscular Volume 100.7 fl (80-100); Nucleated Red Blood Cells Absolute Auto 0.000 K/mm3 (0.0-0.012); Nucleated Red Blood Cells Perc 0.0 % (0.0-0.2); Platelet Count Result 314 k/mm3 (150-375); Red Blood Count 4.38 M/mm3 (4.6-6.20); White Blood Count 6.8 K/mm3 (4.5-10.0)
[2025-01-16 15:31] LABS: Add Urine Microscopic? YES; Appearance Urine Turbid (Clear); Glucose Urine UA Negative (Negative); Leukocyte Esterase Ur Negative LEU/UL (Negative); Nitrate Urine Negative (Negative); Non Pathogenic Casts 0-2; Specific Grav Ur 1.021 (1.001-1.035)
[2025-01-16 15:58] LABS: Alanine Aminotransferase 34 U/L (6-50); Albumin Level 4.4 g/dL (3.5-5.1); Alkaline Phosphatase 69 U/L (38-126); Anion Gap 10 mmol/L (4-12); Aspartate Amino Transferase 43 U/L (17-59); Bilirubin,Total 0.8 mg/dL (0.2-1.3); Blood Urea Nitrogen 32 mg/dL (9-20); Calcium 9.3 mg/dL (8.4-10.2); Carbon Dioxide 24 mmol/L (22-30); Chloride 105 mmol/L (98-107); Cholesterol 187 mg/dL (0-200); Estimated Glomerular Filt Rate > 60; Glucose 93 mg/dL (65-110); HDL Direct 36 mg/dL; Potassium 4.8 mmol/L (3.4-5.0); Sodium 139 mmol/L (137-145); Total Protein 8.5 g/dL (6.3-8.2); Triglycerides 137 mg/dL (<150)
[2025-01-16 16:33] LABS: Prostate Specific Antigen 8.0 ng/mL (< OR = 4.0)
[2025-01-16 17:08] LABS: Vitamin B12 326.0 pg/mL (239-931)
[2025-01-16 17:26] LABS: Iron 113 ug/dL (49-181)
[2025-01-16 17:37] LABS: Percent Iron Saturation 41 % (20-50)
[2025-01-16 17:47] LABS: Thyroid Stimulating Hormone Reflex 1.010 uIU/mL (0.465-4.68)
[2025-01-16 18:05] LABS: Ferritin 421.00 ng/mL (11.1-264)
[2025-01-16 18:15] LABS: Hemoglobin A1C 5.8 % (<5.7)
== END 2025-01-16 09:34 | disposition home or self-care (01) ==
LOC: ANHGOSHLAB 09:34
PROVIDERS: PCP Family Medicine; Visit Provider Family Medicine
DX: D64.9 Anemia, unspecified (principal); I10 Essential (primary) hypertension; R73.03 Prediabetes; E78.5 Hyperlipidemia, unspecified; M35.3 Polymyalgia rheumatica; Z00.00 Encounter for general adult medical examination without abnormal findings; E55.9 Vitamin D deficiency, unspecified; N30.90 Cystitis, unspecified without hematuria; Z12.5 Encounter for screening for malignant neoplasm of prostate
CPT/HCPCS: 36415; 80053; 80061; 81001; 82306; 82607; 82728; 82746; 83036; 83540; 83550; 84153; 84443; 85025; G0103

== ENCOUNTER 2025-03-04 11:16 | Outpatient (CLI) | payer MEDICARE, SELFPAY ==
[2025-03-04 19:23] LABS: CRP 0.8 mg/dL (<1.0)
[2025-03-04 19:57] LABS: Ferritin 251.00 ng/mL (11.1-264)
[2025-03-05 07:09] LABS: PSA, Free 0.15 ng/mL
== END 2025-03-04 11:17 | disposition home or self-care (01) ==
LOC: ANHGOSHLAB 11:17
PROVIDERS: PCP Family Medicine; Visit Provider Family Medicine
DX: R97.20 Elevated prostate specific antigen [PSA] (principal); R79.89 Other specified abnormal findings of blood chemistry; M35.3 Polymyalgia rheumatica
CPT/HCPCS: 36415; 82728; 84153; 84154; 85652; 86140